=== PATIENT | female | born 1965 | race Caucasian/White ===

== ENCOUNTER 2016-06-25 07:26 | Emergency (ER) | payer SELFPAY ==
[~2016-06-25] VITALS: Ht 167.6 cm; Wt 80.0 kg
[~2016-06-25 07:26] MED LIST: ALBU.5I NEB; ALBU8I INH; NORC7.5T PO
[2016-06-25 07:29] VITALS: PULSE 95; RESP 24; TEMP 98.5; O2SAT 100
[2016-06-25 07:38] VITALS: RESP 20; O2SAT 98
[2016-06-25] MEDS: RESP: ALBUTEROL 2.5 MG/IPRATROPIUM 0.5 MG NEB (SCH) INH ×2 (07:41→07:42)
[2016-06-25 07:45] VITALS: O2SAT 98
[2016-06-25] MEDS ORDERED: DEXAMETHASONE SOD PHOS 4 MG/ML VIAL IV PUSH ONE (07:45)
[2016-06-25] MEDS ORDERED: DEXAMETHASONE SOD PHOS 4 MG/ML VIAL IM ONE (07:45)
[2016-06-25] MEDS ORDERED: SODIUM CHLORIDE 0.9% FLUSH 10 ML FLUSH IVF PRN (07:45)
--- NOTE | 2016-06-25 08:15 | RADRPT ---
EXAM DATE/TIME: 06/25/2016 07:49 [facility] COMPARISON: No previous studies available for comparison. INDICATIONS : Short of breath with wheezing, history of asthma. MEDICAL HISTORY : None. SURGICAL HISTORY : None. ENCOUNTER: Initial ACUITY: 1 day PAIN SCORE: 0/10 LOCATION: Bilateral chest FINDINGS: Portable AP view of the chest demonstrates a normal-sized cardiac silhouette. No effusion, consolidat ion, or pneumothorax is visualized. The bones and soft tissues demonstrate no acute abnormality. CONCLUSION: No acute cardiopulmonary abnormality is identified. Zacarias Vargas MD on June 25, 2016 at 8:13 Board Certified Radiologist. This report was verified electronically.
[2016-06-25 08:28] VITALS: BP 126/74; PULSE 99; RESP 18; O2SAT 95
[2016-06-25] MEDS ORDERED: AZIT250T3 PO (08:44)
[2016-06-25] MEDS ORDERED: ALBUAER3 INH (08:44)
--- NOTE | 2016-06-25 08:46 | PD ---
HPI Chief Complaint: Respiratory Distress Time Seen by Provider: 07:34 Travel History International Travel<30 days: No Contact w/Intl Traveler<30days: No Traveled to known affect area: No History of Present Illness HPI 50-year-old female arrives by EMS. She developed shortness of breath yesterday with wheezing. She reports she ran out of her Ventolin inhaler. She uses at least one Ventolin inhaler per month. EMS reports she was 99% on room air. She received 2 albuterol treatments en route and her respiratory rate improved and lung sounds became more clear. Patient reports smoking 1 pack of cigarettes per day. She has a history of asthma. She does not know if she has COPD. She has no nebulizer machine at home however reports she had one previously. She's had a cough. She's had no fever. She denies chest pain. PFSH Past Medical History Cancer: Yes (right breast cancer 2004) Cardiovascular Problems: Yes (HTN-STOPPED TAKING MEDS) COPD: Yes Diabetes: No Diminished Hearing: No Endocrine: No Gastrointestinal Disorders: No Genitourinary: No Hepatitis: No Hiatal Hernia: No Hypertension: Yes Immune Disorder: No Musculoskeletal: No Neurologic: No Psychiatric: No Respiratory: Yes (COPD, asthma, sleep apnea) Thyroid Disease: No ?: Not : 4 Para: 4 Miscarriage: 0 : 0 Tubal Ligation: Yes Past Surgical History Abdominal Surgery: No AICD: No Cardiac Surgery: No Ear Surgery: No Eye Surgery: No Genitourinary Surgery: No Gynecologic Surgery: Yes (tubal ligation) Joint Replacement: No Neurologic Surgery: No Oral Surgery: No Pacemaker: No Thoracic Surgery: Yes (right breast mastectomy) Other Surgery: Yes (BREAST LUMPECTOMY) Social History Alcohol Use: Yes (on occasion) Tobacco Use: Yes (1 ppd) Substance Use: No Allergies-Medications (Allergen,Severity, Reaction): Coded Allergies: Bees (Verified Allergy, Severe, anaphylaxis, 01/09/16) Reported Meds & Prescriptions Reported Meds & Active Scripts Active Ventolin Hfa 18 GM Inh (Albuterol Sulfate) 90 Mcg/Act Aer 2 Puff INH Q6H PRN Azithromycin 250 Mg Tab 250 Mg PO DIRECTED Take 2 tabs (500 mg) on day 1 then 1 tab daily x 4 days. Proair Hfa 8.5 GM Inh (Albuterol Sulfate) 90 Mcg/Act Aer 2 Puff INH Q6H PRN 108 mcg/actuation [place] 7.5-325 mg (Hydrocodone-Acetaminophen 7.5-325 mg) 1 Tab 1 Tab PO Q4H PRN Reported Proventil Conc Ud 0.5% (2.5 Mg/0.5 Ml) (Albuterol Sulfate) 2.5 Mg/0.5 Ml Inha 2.5 Mg NEB Q6HR NEB Ventolin Hfa (Albuterol Sulfate) 8 Gm Aero 2 Puff INH Q4 * SHAKE WELL BEFORE USE * Review of Systems Except as stated in HPI: all other systems reviewed are Neg Respiratory: Positive: Shortness of Breath, Wheezing Physical Exam Narrative GENERAL: 50 yo F, WNWD, mild respiratory distress SKIN: Warm and dry. HEAD: Atraumatic. Normocephalic. EYES: Pupils equal and round. No scleral icterus. No injection or drainage. ENT: No nasal bleeding or discharge. Mucous membranes pink and moist. NECK: Trachea midline. No JVD. CARDIOVASCULAR: Regular rate and rhythm. RESPIRATORY: Wheezing, Mild dyspnea. Mild tachypnea. GASTROINTESTINAL: Abdomen soft, non-tender, nondistended. Hepatic and splenic margins not palpable. MUSCULOSKELETAL: Extremities without clubbing, cyanosis, or edema. No obvious deformities. NEUROLOGICAL: Awake and alert. No obvious cranial nerve deficits. Motor grossly within normal limits. Five out of 5 muscle strength in the arms and legs. Normal speech. PSYCHIATRIC: Appropriate mood and affect; insight and judgment normal. Data Data Last Documented VS Vital Signs Date Time Temp Pulse Resp B/P Pulse Ox O2 Delivery O2 Flow Rate FiO2 06/25/16 08:28 99 18 126/74 95 Room Air 06/25/16 07:45 2.00 06/25/16 07:29 98.5 VS reviewed Orders Iv Access Insert/Monitor (06/25/16 07:34) Ecg Monitoring (06/25/16 07:34) Oximetry (06/25/16 07:34) Oxygen Administration (06/25/16 07:34) Chest, Single Ap (06/25/16 07:34) Sodium Chloride 0.9% Flush (Ns Flush) (06/25/16 07:45) Albuterol-Ipratropium Neb (Duoneb Neb) (06/25/16 07:45) Dexamethasone Inj (Decadron Inj) (06/25/16 07:45) Dexamethasone Inj (Decadron Inj) (06/25/16 07:45) Albuterol Hfa Inh (Ventolin Hfa Inh) (06/25/16 12:00) MDM Medical Decision Making Medical Screen Exam Complete: Yes Emergency Medical Condition: Yes Medical Record Reviewed: Yes Differential Diagnosis asthma exacerbation, COPD, pneumonia, medication refill Narrative Course She states presentation is essentially compatible with a typical asthma exacerbation. She continues that it is likely due to the fact that she is relatively new in the area and has no outside follow-up and is unable to take her medications for chronic essentially constant asthma symptoms. She also notes that abx are typically helpful for her recovery. The patient received Decadron with 3 rounds of DuoNeb. Her chest x-ray is reassuring. She'll be discharged home with prescription as below. Referral for patient assistance provided. Diagnosis Primary Impression: Wheezing Additional Impression: Asthma Qualified Code: J45.41 - Moderate persistent asthma with acute exacerbation Referrals: Patient Assistance Program 2 days Additional Instructions: You have a choice when it comes to health care, and we are glad that you chose [facility]. Hopefully, we have met your expectations on today's visit. You are welcome to return to [facility] at any time, as we are committed to meeting the health care needs of our community. Med/Other Pt SpecificInfo: Prescription(s) given Scripts Albuterol 18 GM Inh (Ventolin Hfa 18 GM Inh)90 Mcg/Act Aer2 Puff INH Q6H PRN ( SHORTNESS OF BREATH) #1 INHALER Ref 1 Prov:Rogelio Quinonez MD 06/25/16 Azithromycin 250 Mg [id number] Mg PO DIRECTED #6 TAB Ref 0 Take 2 tabs (500 mg) on day 1 then 1 tab daily x 4 days. Prov:Rogelio Quinonez MD 06/25/16 Albuterol 8.5 GM Inh (Proair Hfa 8.5 GM Inh)90 Mcg/Act Aer2 Puff INH Q6H PRN ( SHORTNESS OF BREATH) #1 INHALER Ref 1 108 mcg/actuation Prov:Rogelio Quinonez MD 06/25/16 Disposition: 01 DISCHARGE HOME Condition: Stable Rogelio Quinonez MD Jun 25, 2016 08:46
[2016-06-25] MEDS ORDERED: VENTAER INH (08:54)
[2016-06-25] MEDS ORDERED: ALBUTEROL SULFATE 90 MCG/ACT HFA 8 GM INHALER INH SCH (12:00)
[2016-06-25] MEDS ORDERED: ALBUTEROL SULFATE 90 MCG/ACT HFA 18 GM INHALER INH SCH (12:00)
== END 2016-06-25 10:02 | disposition home or self-care (01) ==
LOC: NEPE 07:26
DX: J45.901 Unspecified asthma with (acute) exacerbation (principal); F17.210 Nicotine dependence, cigarettes, uncomplicated; I10 Essential (primary) hypertension
CPT/HCPCS: 71010; 94640; 94664; 96374; 99283; J1100

== ENCOUNTER 2016-08-07 13:54 | Emergency (ER) | payer SELFPAY ==
[~2016-08-07] VITALS: Ht 167.6 cm; Wt 80.0 kg
[~2016-08-07 13:54] MED LIST changes: +ALBUAER3 INH; +AZIT250T3 PO; +VENTAER INH
[2016-08-07 13:56] VITALS: BP 180/82; PULSE 89; RESP 16; TEMP 98.3; O2SAT 96
[2016-08-07] MEDS ORDERED: predniSONE 20 MG TAB PO ONE (14:30)
[2016-08-07] MEDS ORDERED: RESP: ALBUTEROL 2.5 MG/IPRATROPIUM 0.5 MG NEB (SCH) INH ONE (14:30)
--- NOTE | 2016-08-07 14:33 | PD ---
HPI Chief Complaint: Medication Refill Request Time Seen by Provider: 14:05 Travel History International Travel<30 days: No Contact w/Intl Traveler<30days: No Traveled to known affect area: No History of Present Illness HPI 50-year-old female with past medical history of asthma presents to the ER with chief complaint of wheezing after running out of her Ventolin inhaler. She reports wheezing and mild shortness of breath for the last 3 days. She reports that she is mildly short of breath chronically. She reports multiple episodes of asthma exacerbation over the last year after moving here from [place] and losing her insurance. She reports these episodes are typically relieved with oral steroids and breathing treatments. Patient denies chest pain, significant shortness of breath, dizziness, abdominal pain, nausea, vomiting. Patient is a one pack per day smoker. PFSH Past Medical History Narrative Medical Significant past medical history include asthma,hypertension. Cardiovascular Problems: Yes (HTN-STOPPED TAKING MEDS) Diabetes: No Diminished Hearing: No Endocrine: No Gastrointestinal Disorders: No Genitourinary: No Hepatitis: No Hiatal Hernia: No Hypertension: Yes Immune Disorder: No Musculoskeletal: No Neurologic: No Psychiatric: No Respiratory: Yes (COPD) Thyroid Disease: No ?: Not LMP: 2009 : 4 Para: 4 Miscarriage: 0 : 0 Tubal Ligation: Yes Past Surgical History Gynecologic Surgery: Yes (tubal ligation) Other Surgery: Yes (BREAST LUMPECTOMY) Social History Alcohol Use: Yes (on occasion) Tobacco Use: Yes (1 ppd) Substance Use: No Allergies-Medications (Allergen,Severity, Reaction): Coded Allergies: Bees (Verified Allergy, Severe, anaphylaxis, 08/07/16) Reported Meds & Prescriptions Reported Meds & Active Scripts Active Ventolin Hfa 18 GM Inh (Albuterol Sulfate) 90 Mcg/Act Aer 2 Puff INH Q4-6H PRN Prednisone 20 Mg Tab 40 Mg PO DAILY Take 40 mg (2 tablets) daily for 5 days Ventolin Hfa 18 GM Inh (Albuterol Sulfate) 90 Mcg/Act Aer 2 Puff INH Q6H PRN Physical Exam Narrative GENERAL: Well-appearing, well-nourished female. In no acute distress SKIN: Focused skin assessment warm/dry. HEAD: Atraumatic. Normocephalic. EYES: Pupils equal and round. No scleral icterus. No injection or drainage. ENT: No nasal bleeding or discharge. Mucous membranes pink and moist. NECK: Trachea midline. No JVD. CARDIOVASCULAR: Regular rate and rhythm. No murmur appreciated. RESPIRATORY: No respiratory distress. Speaking in full sentences. No accessory muscle use. Breath sounds equal bilaterally. Expiratory wheezes bilaterally. Good air movement. GASTROINTESTINAL: Abdomen soft, non-tender, nondistended. Hepatic and splenic margins not palpable. MUSCULOSKELETAL: No obvious deformities. No clubbing. No cyanosis. No edema. NEUROLOGICAL: Awake and alert. No obvious cranial nerve deficits. Motor grossly within normal limits. Normal speech. PSYCHIATRIC: Appropriate mood and affect; insight and judgment normal. Data Data Last Documented VS Vital Signs Date Time Temp Pulse Resp B/P Pulse Ox O2 Delivery O2 Flow Rate FiO2 08/07/16 13:56 98.3 89 16 180/82 96 Orders Albuterol-Ipratropium Neb (Duoneb Neb) (08/07/16 14:30) Prednisone (Deltasone) (08/07/16 14:30) MDM Medical Decision Making Medical Screen Exam Complete: Yes Emergency Medical Condition: Yes Medical Record Reviewed: Yes Differential Diagnosis Asthma exacerbation, bronchitis, COPD Narrative Course 50-year-old female with history of asthma presents to the emergency department with chief complaint of wheezing and mild shortness of breath for the last 3 days after running out of her Ventolin inhaler. She is well-appearing in no respiratory distress. She does however have expiratory wheezes on exam. Patient is currently without insurance and therefore unable to get a prescription for the Ventolin. Patient will be given oral steroids and breathing treatment in the ED and reassess. Patient reassessed after breathing treatment and steroids. Wheezing has greatly resolved although expiratory wheezes present. She reports symptom improvement and requesting discharge. Patient is requesting Ventolin inhaler at discharge because she is unable to afford to purchase one without insurance. Patient reports she is eligible for [place] Medicaid starting in September 2016. Given the patient's history of frequent emergency room visits for asthma exacerbation the patient will be given albuterol inhaler here in ER to go. Diagnosis Primary Impression: Asthma Qualified Code: J45.20 - Mild intermittent asthma without complication Referrals: Primary Care Physician Patient Instructions: Asthma (ED), General Instructions Scripts Albuterol 18 GM Inh (Ventolin Hfa 18 GM Inh)90 Mcg/Act Aer2 Puff INH Q4-6H PRN ( SHORTNESS OF BREATH) #1 INHALER Ref 0 Prov:Jena Pettit 08/07/16 Prednisone 20 Mg Tab40 Mg PO DAILY #10 TAB Take 40 mg (2 tablets) daily for 5 days Prov:Jena Pettit 08/07/16 Disposition: 01 DISCHARGE HOME Condition: Jena Ortiz August 07, 2016 14:33
[2016-08-07] MEDS ORDERED: VENTAER INH (14:38)
[2016-08-07] MEDS ORDERED: PRED20 PO (14:38)
[2016-08-07 15:42] VITALS: PULSE 84; RESP 20; O2SAT 98
[2016-08-07] MEDS ORDERED: ALBUTEROL SULFATE 90 MCG/ACT HFA 8 GM INHALER INH SCH (16:00)
[2016-08-07] MEDS ORDERED: ALBUTEROL SULFATE 90 MCG/ACT HFA 18 GM INHALER INH SCH (16:00)
== END 2016-08-07 16:14 | disposition home or self-care (01) ==
LOC: NEPK 13:54
DX: J45.20 Mild intermittent asthma, uncomplicated (principal); Z76.0 Encounter for issue of repeat prescription; I10 Essential (primary) hypertension; J44.9 Chronic obstructive pulmonary disease, unspecified; F17.210 Nicotine dependence, cigarettes, uncomplicated
CPT/HCPCS: 94664; 99284; J7512

== ENCOUNTER 2016-11-23 15:50 | Emergency (ER) | payer BC ==
[~2016-11-23] VITALS: Ht 167.6 cm; Wt 85.0 kg
[~2016-11-23 15:50] MED LIST changes: -ALBU.5I NEB; -ALBU8I INH; -ALBUAER3 INH; -AZIT250T3 PO; -NORC7.5T PO; +PRED20 PO
[2016-11-23 15:52] VITALS: BP 139/93; PULSE 114; RESP 18; TEMP 98.1; O2SAT 100
[2016-11-23] MEDS ORDERED: RESP: BUDESONIDE 0.5 MG/2 ML NEB NEB ONE (16:30)
[2016-11-23] MEDS ORDERED: methylPREDNISolone SOD SUCC 125 MG/2 ML VIAL IM ONE (16:30)
[2016-11-23] MEDS: RESP: ALBUTEROL 2.5 MG/IPRATROPIUM 0.5 MG NEB (SCH) INH ×3 (16:30→17:00)
--- NOTE | 2016-11-23 16:30 | PD ---
HPI Chief Complaint: Medication Refill Request Time Seen by Provider: 16:23 Travel History International Travel<30 days: No Contact w/Intl Traveler<30days: No Traveled to known affect area: No History of Present Illness HPI Patient is a 51-year-old female presenting to emergency department for medication refill. Patient reports a history of COPD and is out of her Ventolin inhaler. She is supposed to be on an inhaled steroid but cannot afford this. She denies any shortness of breath, she does report a chronic occasionally productive cough. She denies any fever, chills, nausea, vomiting, headache. PFSH Past Medical History COPD: Yes Diabetes: No Diminished Hearing: No Endocrine: No Gastrointestinal Disorders: No Genitourinary: No Hepatitis: No Hiatal Hernia: No Hypertension: Yes Immune Disorder: No Musculoskeletal: No Neurologic: No Psychiatric: No Thyroid Disease: No ?: Not LMP: 5 YEARS : 4 Para: 4 Miscarriage: 0 : 0 Tubal Ligation: Yes Past Surgical History Gynecologic Surgery: Yes (tubal ligation) Other Surgery: Yes (BREAST LUMPECTOMY) Social History Alcohol Use: Yes (on occasion) Tobacco Use: Yes (1 ppd) Substance Use: No Allergies-Medications (Allergen,Severity, Reaction): Coded Allergies: bee venom protein (honey bee) (Unverified Allergy, Severe, anaphylaxis, ) Reported Meds & Prescriptions Reported Meds & Active Scripts Active Nebulizer 1 Mis Mis Ea .ROUTE DIRECTED Albuterol Neb (Albuterol Sulfate) 0.63 Mg/3 Ml Neb 0.63 Mg NEB QID NEB PRN Prednisone 50 Mg Tab 50 Mg PO DAILY 5 Days Azithromycin 250 Mg Tab 250 Mg PO DIRECTED Take 2 tabs (500 mg) on day 1 then 1 tab daily x 4 days. Ventolin Hfa 18 GM Inh (Albuterol Sulfate) 90 Mcg/Act Aer 2 Puff INH Q4-6H PRN Ventolin Hfa 18 GM Inh (Albuterol Sulfate) 90 Mcg/Act Aer 2 Puff INH Q4-6H PRN Prednisone 20 Mg Tab 40 Mg PO DAILY Take 40 mg (2 tablets) daily for 5 days Ventolin Hfa 18 GM Inh (Albuterol Sulfate) 90 Mcg/Act Aer 2 Puff INH Q6H PRN Review of Systems Except as stated in HPI: all other systems reviewed are Neg Respiratory: Positive: Cough, Wheezing, No: Shortness of Breath Physical Exam Narrative GENERAL: Overweight, well-developed, alert female. Resting comfortably in no acute distress. SKIN: Warm and dry. HEAD: Atraumatic. Normocephalic. EYES: Pupils equal and round. No scleral icterus. No injection or drainage. ENT: No nasal bleeding or discharge. Mucous membranes pink and moist. NECK: Trachea midline. No JVD. CARDIOVASCULAR: Regular rate and rhythm. RESPIRATORY: No accessory muscle use. Scattered expiratory wheezing noted bilaterally. GASTROINTESTINAL: Abdomen soft, non-tender, nondistended. Hepatic and splenic margins not palpable. MUSCULOSKELETAL: Extremities without clubbing, cyanosis, or edema. No obvious deformities. NEUROLOGICAL: Awake and alert. No obvious cranial nerve deficits. Motor grossly within normal limits. Five out of 5 muscle strength in the arms and legs. Normal speech. PSYCHIATRIC: Appropriate mood and affect; insight and judgment normal. Data Data Last Documented VS Vital Signs Date Time Temp Pulse Resp B/P (MAP) Pulse Ox O2 Delivery O2 Flow Rate FiO2 11/23/16 15:52 98.1 114 18 139/93 (108) 100 Orders Orders Methylprednisolone So Succ Inj (Solumedr (11/23/16 16:30) Albuterol-Ipratropium Neb (Duoneb Neb) (11/23/16 16:30) Budesonide Neb (Pulmicort Respule Neb) (11/23/16 16:30) MDM Medical Decision Making Medical Screen Exam Complete: Yes Emergency Medical Condition: Yes Interpretation(s) Vital Signs Date Time Temp Pulse Resp B/P (MAP) Pulse Ox O2 Delivery O2 Flow Rate FiO2 11/23/16 15:52 98.1 114 18 139/93 (108) 100 Differential Diagnosis COPD exacerbation versus bronchitis versus pneumonia versus medication refill versus other Narrative Course Patient is a 51-year-old female presenting for medication refill. On exam she was noted to have audible wheezing, she is mildly tachycardic. Patient will be given nebulizer treatments and a dose of Solu-Medrol now. Patient did not receive medications, she declined stating that her ride was here. She was given refills of her current medications as well as a prescription for nebulizer machine and albuterol nebulizer treatments. HR reassessed prior to discharge at 95. She was encouraged to follow-up with her primary doctor or the is only clinic. She was further advised to avoid tobacco use to avoid exacerbation of symptoms. She verbalized understanding of instructions. Patient is stable for discharge. Diagnosis Primary Impression: COPD (chronic obstructive pulmonary disease) Qualified Codes: J44.9 - Chronic obstructive pulmonary disease, unspecified Referrals: [facility] Primary Care Physician Patient Instructions: COPD (Chronic Obstructive Pulmonary Disease) (ED), General Instructions, Nutrition Guidelines for People with COPD (ED) Additional Instructions: Follow-up with her primary doctor or at the [facility] Take medications as directed Return to emergency department for any new or worsening symptoms Med/Other Pt SpecificInfo: Prescription(s) given Scripts Nebulizer (Nebulizer) 1 Mis Mis EA .ROUTE DIRECTED for Breathing Treatment, #1 0 Refills Prov: Lorna Swenson 11/23/16 Albuterol Neb (Albuterol Neb) 0.63 Mg/3 Ml Neb 0.63 MG NEB QID NEB Y for SHORTNESS OF BREATH, #125 NEBULE 0 Refills Prov: Lorna Swenson 11/23/16 Prednisone (Prednisone) 50 Mg Tab 50 MG PO DAILY for 5 Days, TAB 0 Refills Prov: Lorna Swenson 11/23/16 Azithromycin (Azithromycin) 250 Mg Tab 250 MG PO DIRECTED for Infection, #6 TAB 0 Refills Take 2 tabs (500 mg) on day 1 then 1 tab daily x 4 days. Prov: Lorna Swenson 11/23/16 Albuterol 18 GM Inh (Ventolin Hfa 18 GM Inh) 90 Mcg/Act Aer 2 PUFF INH Q4-6H Y for SHORTNESS OF BREATH, #1 INHALER 0 Refills Prov: Lorna Swenson 11/23/16 Disposition: 01 DISCHARGE HOME Condition: Stable Lorna Swenson Nov 23, 2016 16:30
[2016-11-23] MEDS ORDERED: VENTAER INH (17:03)
[2016-11-23] MEDS ORDERED: NEBULIZER1 MI1 (17:03)
[2016-11-23] MEDS ORDERED: ALBU0.63 NEB (17:03)
[2016-11-23] MEDS ORDERED: AZIT250T3 PO (17:03)
[2016-11-23] MEDS ORDERED: PRED50 PO (17:03)
== END 2016-11-23 17:27 | disposition home or self-care (01) ==
LOC: NEPD 15:50
DX: J44.9 Chronic obstructive pulmonary disease, unspecified (principal); F17.200 Nicotine dependence, unspecified, uncomplicated
CPT/HCPCS: 96372; 99284; J2930

== ENCOUNTER 2016-12-17 13:15 | Emergency (ER) | payer BC ==
[~2016-12-17 13:15] MED LIST changes: +ALBU0.63 NEB; +AZIT250T3 PO; +NEBULIZER1 MI1; +PRED50 PO
[2016-12-17 13:18] VITALS: BP 187/98; PULSE 113; RESP 15; TEMP 99.6; O2SAT 96
--- NOTE | 2016-12-17 13:24 | PD ---
Physical Exam Time Seen by Provider: 13:23 Narrative 51 year old female presents for evaluation of right wrist pain. Pt is right handed, has had 3 surgeries on the wrist. Slipped and fell 3 days ago and braced fall with RUE. Pain has been worsening x 3 days. Denies any other injury. Data Data Last Documented VS Vital Signs Date Time Temp Pulse Resp B/P (MAP) Pulse Ox O2 Delivery O2 Flow Rate FiO2 12/17/16 15:29 12/17/16 13:18 99.6 113 15 96 Orders Orders Wrist, Complete ([id number]) (12/17/16 ) [facility] Medical Record Reviewed: Yes Supervised Visit with ROSALIA: No Scripts Naproxen (Naproxen) 500 Mg Tab 500 MG PO BID for 7 Days, #14 TAB 0 Refills Prov: Franklyn Brar MD 12/17/16 Albuterol 18 GM Inh (Ventolin Hfa 18 GM Inh) 90 Mcg/Act Aer 2 PUFF INH Q4-6H Y for SHORTNESS OF BREATH, #1 INHALER 0 Refills Prov: Franklyn Brar MD 12/17/16 Condition: Stable Ange France Dec 17, 2016 13:24
--- NOTE | 2016-12-17 14:23 | RADRPT ---
EXAM DATE/TIME: 12/17/2016 14:06 [facility] COMPARISON: No previous studies available for comparison. INDICATIONS : Right wrist pain, fell on it the other day. MEDICAL HISTORY : right wrist fracture 2017 SURGICAL HISTORY : 3 surgeries on right wrist, last one 2017 ENCOUNTER: Initial ACUITY: 2 days PAIN SCORE: 7/10 LOCATION: Right wrist FINDINGS: There has been previous plate and screw fixation of the distal radius. There is slight radial shorten ing relative to the distal ulna. There are some small ulnar styloid fragments which are chronic. The carpals appear intact. CONCLUSION: No acute bony injury Zacarias Calvillo MD on December 17, 2016 at 14:19 Board Certified Radiologist. This report was verified electronically.
[2016-12-17] MEDS ORDERED: VENTAER INH (14:54)
[2016-12-17] MEDS ORDERED: NAPR500T PO (14:57)
--- NOTE | 2016-12-17 15:02 | PD ---
HPI Chief Complaint: Musculoskeletal Complaint Time Seen by Provider: 14:54 Travel History International Travel<30 days: No Contact w/Intl Traveler<30days: No Traveled to known affect area: No History of Present Illness HPI [id number] female presents for evaluation of right wrist pain. 3 days ago she tripped and the top and fell on her outstretched right hand. She reports that her right wrist bent awkwardly. She has had pain in the right wrist since then. The pain is an aching pain which is constant and worse with movement. Denies any numbness or tingling. She reports chronic limitation of her right wrist range of motion secondary to previous fractures and surgeries to the right wrist. She denies any other injuries. She is requesting a refill of her inhaler for her COPD. [facility] Past Medical History COPD: Yes Diabetes: No Diminished Hearing: No Endocrine: No Gastrointestinal Disorders: No Genitourinary: No Hepatitis: No Hiatal Hernia: No Hypertension: Yes Immune Disorder: No Musculoskeletal: No Neurologic: No Psychiatric: No Thyroid Disease: No : 4 Para: 4 Miscarriage: 0 : 0 Tubal Ligation: Yes Past Surgical History Gynecologic Surgery: Yes (tubal ligation) Other Surgery: Yes (BREAST LUMPECTOMY) Social History Alcohol Use: Yes (on occasion) Tobacco Use: Yes (1 ppd) Substance Use: No Allergies-Medications (Allergen,Severity, Reaction): Coded Allergies: bee venom protein (honey bee) (Unverified Allergy, Severe, anaphylaxis, ) Reported Meds & Prescriptions Reported Meds & Active Scripts Active Naproxen 500 Mg Tab 500 Mg PO BID 7 Days Ventolin Hfa 18 GM Inh (Albuterol Sulfate) 90 Mcg/Act Aer 2 Puff INH Q4-6H PRN Nebulizer 1 Mis Mis Ea .ROUTE DIRECTED Albuterol Neb (Albuterol Sulfate) 0.63 Mg/3 Ml Neb 0.63 Mg NEB QID NEB PRN Prednisone 50 Mg Tab 50 Mg PO DAILY 5 Days Azithromycin 250 Mg Tab 250 Mg PO DIRECTED Take 2 tabs (500 mg) on day 1 then 1 tab daily x 4 days. Ventolin Hfa 18 GM Inh (Albuterol Sulfate) 90 Mcg/Act Aer 2 Puff INH Q4-6H PRN Prednisone 20 Mg Tab 40 Mg PO DAILY Take 40 mg (2 tablets) daily for 5 days Ventolin Hfa 18 GM Inh (Albuterol Sulfate) 90 Mcg/Act Aer 2 Puff INH Q6H PRN Review of Systems General / Constitutional: No: Fever, Chills Musculoskeletal: Positive: Limited ROM, Pain Skin: Positive Other (denies open wounds) Physical Exam Narrative GENERAL: Well-developed well-nourished female who is noted to be tachycardic in triage and upon reassessment her pulse is 85. SKIN: Warm and dry. HEAD: Atraumatic. Normocephalic. EYES: Pupils equal and round. No scleral icterus. No injection or drainage. ENT: No nasal bleeding or discharge. Mucous membranes pink and moist. NECK: Trachea midline. No JVD. CARDIOVASCULAR: Regular rate and rhythm. No murmur appreciated. RESPIRATORY: No accessory muscle use. Mild wheezing bilaterally. MUSCULOSKELETAL: Previous surgical scar noted to the right wrist. There is limited pronation, supination, flexion and extension of the right wrist which are chronic per the patient. There is no bruising or soft tissue swelling. There is generalized tenderness to palpation of the right wrist joint. Distal sensation and pulses are intact. NEUROLOGICAL: Awake and alert. No obvious cranial nerve deficits. Motor grossly within normal limits. Normal speech. Data Data Last Documented VS Vital Signs Date Time Temp Pulse Resp B/P (MAP) Pulse Ox O2 Delivery O2 Flow Rate FiO2 12/17/16 13:18 99.6 113 15 187/98 (127) 96 Orders Orders Wrist, Complete ([id number]) (12/17/16 ) [facility] Medical Decision Making Medical Screen Exam Complete: Yes Emergency Medical Condition: Yes Medical Record Reviewed: Yes Differential Diagnosis Wrist fracture, sprain, hardware fracture, dislocation Narrative Course 51-year-old female here with right wrist pain after fall that she was kept 3 days ago. X-ray imaging is negative for acute process. Examination is consistent with a sprain to the right wrist. She is stable for discharge with a prescription for naproxen for pain. She is also be given a refill of her Ventolin inhaler at her request. Diagnosis Primary Impression: Wrist sprain Qualified Codes: S63.501A - Unspecified sprain of right wrist, initial encounter Additional Instructions: Medication as needed- take with meals. Follow-up with primary care and return for any emergent medical conditions. Med/Other Pt SpecificInfo: Prescription(s) given Scripts Naproxen (Naproxen) 500 Mg Tab 500 MG PO BID for 7 Days, #14 TAB 0 Refills Prov: Franklyn Brar MD 12/17/16 Albuterol 18 GM Inh (Ventolin Hfa 18 GM Inh) 90 Mcg/Act Aer 2 PUFF INH Q4-6H Y for SHORTNESS OF BREATH, #1 INHALER 0 Refills Prov: Farnklyn Brar MD 12/17/16 Disposition: 01 DISCHARGE HOME Condition: Stable Steven Hendricks Dec 17, 2016 15:02
== END 2016-12-17 15:30 | disposition home or self-care (01) ==
LOC: NEPK 13:15
DX: S63.501A Unspecified sprain of right wrist, initial encounter (principal); J44.9 Chronic obstructive pulmonary disease, unspecified; I10 Essential (primary) hypertension; F17.200 Nicotine dependence, unspecified, uncomplicated; W01.0XXA Fall on same level from slipping, tripping and stumbling without subsequent striking against object, initial encounter; Z79.51 Long term (current) use of inhaled steroids; Z79.899 Other long term (current) drug therapy
CPT/HCPCS: 73110; 99283

== ENCOUNTER 2017-02-15 10:51 | Emergency (ER) | payer BC ==
[~2017-02-15] VITALS: Ht 172.7 cm; Wt 90.5 kg
[~2017-02-15 10:51] MED LIST changes: +NAPR500T2 PO
[2017-02-15 10:52] VITALS: BP 157/92; PULSE 126; RESP 20; TEMP 98.7; O2SAT 97
[2017-02-15] MEDS ORDERED: SODIUM CHLORIDE 0.9% FLUSH 10 ML FLUSH IVF PRN (11:15)
[2017-02-15] MEDS ORDERED: methylPREDNISolone SOD SUCC 125 MG/2 ML VIAL IV PUSH ONE (11:15)
[2017-02-15] MEDS: RESP: ALBUTEROL 2.5 MG/IPRATROPIUM 0.5 MG NEB (SCH) INH ×2 (11:27→13:42)
[2017-02-15 11:31] VITALS: O2SAT 99
--- NOTE | 2017-02-15 11:37 | RADRPT ---
EXAM DATE/TIME: 02/15/2017 11:17 [facility] COMPARISON: WRIST RIGHT COMPLETE ([id number]), December 17, 2016, 14:06. INDICATIONS : Shortness of breath and cough for 3 days. MEDICAL HISTORY : Chronic obstructive pulmonary disease. Hypertension SURGICAL HISTORY : None. ENCOUNTER: Initial ACUITY: 3 days PAIN SCORE: 0/10 LOCATION: Bilateral chest FINDINGS: The cardiac and mediastinal contours are within normal limits. There are mild chronic interstitial ch anges within the parenchyma. The visualized osseous structures are intact. CONCLUSION: 1. Mild chronic interstitial changes. No acute cardiopulmonary findings. Rogelio Wharton MD on February 15, 2017 at 11:34 Board Certified Radiologist. This report was verified electronically.
[2017-02-15 11:43] LABS: AUTOMATED NEUTROPHIL # 5.8 TH/MM3 (1.8-7.7); BASOPHIL % 0.4 % (0.0-2.0); EOSINOPHIL # 0.4 TH/MM3 (0-0.4); EOSINOPHIL % 4.7 % (0.0-4.0); HEMATOCRIT 42.1 % (35.0-46.0); HEMO FLAGS DIFF FINAL; LYMPH % 28.7 % (9.0-44.0); LYMPHOCYTE # 2.7 TH/MM3 (1.0-4.8); MEAN CELL VOLUME 90.5 FL (80.0-100.0); MEAN CORPUSCULAR HEMOGLOBIN 30.2 PG (27.0-34.0); MEAN CORPUSCULAR HGB CONC 33.3 % (32.0-36.0); MONO % 5.4 % (0.0-8.0); NEUT % 60.8 % (16.0-70.0); PLATELET COUNT 166 TH/MM3 (150-450); RED BLOOD COUNT 4.65 MIL/MM3 (4.00-5.30); RED CELL DISTRIBUTION WIDTH 14.3 % (11.6-17.2); WHITE BLOOD COUNT 9.5 TH/MM3 (4.0-11.0)
[2017-02-15 12:14] LABS: ALKALINE PHOSPHATASE 84 U/L (45-117); ALT (GPT) 24 U/L (10-53); TOTAL BILIRUBIN ADULT 0.4 MG/DL (0.2-1.0)
[2017-02-15 12:55] LABS: BLOOD UREA NITROGEN 8 MG/DL (7-18); GLOMERULAR FILTRATION RATE 67 ML/MIN (>89)
[2017-02-15 12:56] LABS: ANION GAP 8 MEQ/L (5-15); AST (GOT) 17 U/L (15-37); BICARBONATE 26.4 MEQ/L (21.0-32.0); CHLORIDE 107 MEQ/L (98-107); POTASSIUM 4.4 MEQ/L (3.5-5.1); SODIUM (NA) 141 MEQ/L (136-145)
[2017-02-15] MEDS ORDERED: RESP: ALBUTEROL 2.5 MG/3 ML NEB (SCH) NEB ONE (13:15)
[2017-02-15] MEDS ORDERED: ALBUAER3 INH (13:41)
[2017-02-15] MEDS ORDERED: ALBU0.08 NEB (13:41)
--- NOTE | 2017-02-15 13:41 | PD ---
HPI Chief Complaint: Respiratory Symptoms Time Seen by Provider: 11:02 Travel History International Travel<30 days: No Contact w/Intl Traveler<30days: No Traveled to known affect area: No History of Present Illness HPI Patient is a 51-year-old female history of COPD who comes in complaining of shortness of breath. She has had nasal congestion and cough for the past 3 days. She says she's been using her albuterol at home without much relief. She denies chest pain, but says she feels some tightness in her chest. She denies any leg pain or swelling. She says this is typical of her COPD. She denies fever or chills. She is still smoking. PFSH Past Medical History Cancer: Yes (right breast cancer 2004) Cardiovascular Problems: Yes (HTN-STOPPED TAKING MEDS) COPD: Yes Diabetes: No Diminished Hearing: No Endocrine: No Gastrointestinal Disorders: No Genitourinary: No Hepatitis: No Hiatal Hernia: No Hypertension: Yes Immune Disorder: No Musculoskeletal: No Neurologic: No Psychiatric: No Respiratory: Yes (COPD) Thyroid Disease: No Tetanus Vaccination: Unknown Influenza Vaccination: Yes ?: Not : 4 Para: 4 Miscarriage: 0 : 0 Tubal Ligation: Yes Past Surgical History Gynecologic Surgery: Yes (tubal ligation) Pacemaker: No Thoracic Surgery: Yes (right breast mastectomy) Other Surgery: Yes (BREAST LUMPECTOMY) Social History Alcohol Use: No Tobacco Use: Yes (1 ppd) Substance Use: No Allergies-Medications (Allergen,Severity, Reaction): Coded Allergies: bee venom protein (honey bee) (Unverified Allergy, Severe, anaphylaxis, ) Reported Meds & Prescriptions Reported Meds & Active Scripts Active Albuterol Neb (Albuterol Sulfate) 2.5 Mg/3 Ml Neb 2.5 Mg NEB Q4HR NEB PRN Proair Hfa 8.5 GM Inh (Albuterol Sulfate) 90 Mcg/Act Aer 2 Puff INH Q4-6H PRN 108 mcg/actuation Naproxen 500 Mg Tab 500 Mg PO BID 7 Days Ventolin Hfa 18 GM Inh (Albuterol Sulfate) 90 Mcg/Act Aer 2 Puff INH Q4-6H PRN Nebulizer 1 Mis Mis Ea .ROUTE DIRECTED Albuterol Neb (Albuterol Sulfate) 0.63 Mg/3 Ml Neb 0.63 Mg NEB QID NEB PRN Prednisone 50 Mg Tab 50 Mg PO DAILY 5 Days Azithromycin 250 Mg Tab 250 Mg PO DIRECTED Take 2 tabs (500 mg) on day 1 then 1 tab daily x 4 days. Ventolin Hfa 18 GM Inh (Albuterol Sulfate) 90 Mcg/Act Aer 2 Puff INH Q4-6H PRN Prednisone 20 Mg Tab 40 Mg PO DAILY Take 40 mg (2 tablets) daily for 5 days Ventolin Hfa 18 GM Inh (Albuterol Sulfate) 90 Mcg/Act Aer 2 Puff INH Q6H PRN Review of Systems Except as stated in HPI: all other systems reviewed are Neg General / Constitutional: No: Fever, Chills HENT: Positive: Congestion, No: Headaches, Lightheadedness Cardiovascular: No: Chest Pain or Discomfort Respiratory: Positive: Cough, Shortness of Breath Gastrointestinal: No: Nausea, Vomiting Musculoskeletal: No: Myalgias, Edema Skin: No Rash, No Change in Pigmentation Neurologic: No: Weakness, Dizziness Physical Exam Narrative GENERAL: Awake and alert, in no acute distress. SKIN: Focused skin assessment warm/dry. HEAD: Atraumatic. Normocephalic. EYES: Pupils equal and round. No scleral icterus. ENT: Mucous membranes pink and moist. NECK: Trachea midline. No JVD. CARDIOVASCULAR: Regular rate and rhythm. No murmur appreciated. RESPIRATORY: No accessory muscle use. She is wheezing throughout both lungs. Breath sounds equal bilaterally. GASTROINTESTINAL: Abdomen soft, non-tender, nondistended. MUSCULOSKELETAL: No obvious deformities. No clubbing. No cyanosis. No edema. NEUROLOGICAL: Awake and alert. No obvious cranial nerve deficits. Motor grossly within normal limits. Normal speech. PSYCHIATRIC: Appropriate mood and affect; insight and judgment normal. Data Data Last Documented VS Vital Signs Date Time Temp Pulse Resp B/P (MAP) Pulse Ox O2 Delivery O2 Flow Rate FiO2 02/15/17 11:31 18 97 Room Air 02/15/17 11:31 02/15/17 10:52 98.7 126 Orders Orders Complete Blood Count With Diff (02/15/17 11:06) Comprehensive Metabolic Panel (02/15/17 11:06) Iv Access Insert/Monitor (02/15/17 11:06) Ecg Monitoring (02/15/17 11:06) Oximetry (02/15/17 11:06) Oxygen Administration (02/15/17 11:06) Chest, Pa & Lat (02/15/17 11:06) Sodium Chloride 0.9% Flush (Ns Flush) (02/15/17 11:15) Methylprednisolone So Succ Inj (Solumedr (02/15/17 11:15) Albuterol-Ipratropium Neb (Duoneb Neb) (02/15/17 11:15) Albuterol Neb (Albuterol Neb) (02/15/17 13:15) Ed Discharge Order (02/15/17 13:41) Labs Laboratory Tests Test 02/15/17 11:15 02/15/17 12:25 White Blood Count 9.5 TH/MM3 Red Blood Count 4.65 MIL/MM3 Hemoglobin 14.0 GM/DL Hematocrit 42.1 % Mean Corpuscular Volume 90.5 FL Mean Corpuscular Hemoglobin 30.2 PG Mean Corpuscular Hemoglobin Concent 33.3 % Red Cell Distribution Width 14.3 % Platelet Count 166 TH/MM3 Mean Platelet Volume 9.6 FL Neutrophils (%) (Auto) 60.8 % Lymphocytes (%) (Auto) 28.7 % Monocytes (%) (Auto) 5.4 % Eosinophils (%) (Auto) 4.7 % Basophils (%) (Auto) 0.4 % Neutrophils # (Auto) 5.8 TH/MM3 Lymphocytes # (Auto) 2.7 TH/MM3 Monocytes # (Auto) 0.5 TH/MM3 Eosinophils # (Auto) 0.4 TH/MM3 Basophils # (Auto) 0.0 TH/MM3 CBC Comment DIFF FINAL Differential Comment Blood Urea Nitrogen 8 MG/DL Creatinine 0.89 MG/DL Random Glucose 109 MG/DL Total Protein 7.8 GM/DL Albumin 3.7 GM/DL Calcium Level 9.1 MG/DL Alkaline Phosphatase 84 U/L Aspartate Amino Transf (AST/SGOT) 17 U/L Alanine Aminotransferase (ALT/SGPT) 24 U/L Total Bilirubin 0.4 MG/DL Sodium Level 141 MEQ/L Potassium Level 4.4 MEQ/L Chloride Level 107 MEQ/L Carbon Dioxide Level 26.4 MEQ/L Anion Gap 8 MEQ/L Estimat Glomerular Filtration Rate 67 ML/MIN MDM Medical Decision Making Medical Screen Exam Complete: Yes Emergency Medical Condition: Yes Medical Record Reviewed: Yes Differential Diagnosis COPD exacerbation versus pneumonia versus URI Narrative Course Patient is a 51-year-old female comes in complaining of shortness of breath with cough and cold. Exam shows diffuse wheezing Both lungs. IV established, labs sent. Patient given 3 duo nebs and a dose of Solu-Medrol. X-ray performed shows no acute abnormalities. Labs show no acute abnormalities. Patient still has some wheezing, but reports feeling better. She is offered another albuterol treatment, however she says she would like to go because she is hungry. Given prescriptions for her albuterol as well as prednisone. Advised follow-up with a primary care doctor. Strongly advised to quit smoking. Advised to return to the ED as needed for any worsening symptoms. Diagnosis Primary Impression: COPD (chronic obstructive pulmonary disease) Qualified Codes: J44.1 - Chronic obstructive pulmonary disease with (acute) exacerbation Patient Instructions: COPD (Chronic Obstructive Pulmonary Disease) (ED), General Instructions Additional Instructions: He needs to quit smoking. Follow-up with the [facility]. Take the prednisone starting tomorrow as you had steroids today already. He is albuterol as needed. Return to the ED as needed for any worsening symptoms. Scripts Albuterol 18 GM Inh (Ventolin Hfa 18 GM Inh) 90 Mcg/Act Aer 2 PUFF INH Q4-6H Y for SHORTNESS OF BREATH, #1 INHALER 0 Refills Prov: Anna Enrique MD 02/15/17 Albuterol Neb (Albuterol Neb) 2.5 Mg/3 Ml Neb 2.5 MG NEB Q4HR NEB Y for SHORTNESS OF BREATH, #60 NEBULE 0 Refills Prov: Anna Enrique MD 02/15/17 Disposition: 01 DISCHARGE HOME Condition: Stable Anna Enrique MD Feb 15, 2017 13:41
[2017-02-15] MEDS ORDERED: VENTAER INH (14:06)
== END 2017-02-15 14:16 | disposition home or self-care (01) ==
LOC: NEPD 10:51
DX: J44.9 Chronic obstructive pulmonary disease, unspecified (principal); I10 Essential (primary) hypertension; F17.200 Nicotine dependence, unspecified, uncomplicated; Z79.51 Long term (current) use of inhaled steroids; Z79.899 Other long term (current) drug therapy
CPT/HCPCS: 71020; 80053; 85025; 94640; 94664; 96374; 99285; J2930; J7613

== ENCOUNTER 2017-07-05 05:48 | Inpatient (IN) | payer BC ==
[2017-07-05] VITALS (28 sets, daily range): BP systolic 74–229; BP diastolic 50–156; PULSE 109–164; RESP 16–40; TEMP 97.4–99.2; O2SAT 91–100
[~2017-07-05] VITALS: Ht 165.1 cm; Wt 98.3 kg
[~2017-07-05 05:48] MED LIST changes: +ALBU0.08 NEB
[2017-07-05] MEDS ORDERED: LORazepam 2 MG/ML VIAL ONE (05:50)
[2017-07-05] MEDS ORDERED: AZITHROMYCIN INJ 500 MG in SODIUM CHLOR 0.9% 250 ML INJ 250 ML IV STA (05:53)
[2017-07-05] MEDS ORDERED: cefTRIAXone INJ 2,000 MG in SODIUM CHLORIDE 0.9% INJ 100 ML IV STA (05:53)
[2017-07-05] MEDS ORDERED: DILTIAZEM HCL 50 MG/10 ML VIAL ONE (05:59)
[2017-07-05] MEDS ORDERED: LORazepam 2 MG/ML VIAL IV PUSH ONE (06:00)
[2017-07-05] MEDS ORDERED: FUROSEMIDE 40 MG/4 ML VIAL IVP ONE (06:00)
[2017-07-05] MEDS ORDERED: SODIUM CHLORIDE 0.9% FLUSH 10 ML FLUSH IVF PRN ×2 (06:00→06:30)
[2017-07-05] MEDS ORDERED: PROPOFOL 500 MG/50 ML INJ 50 ML ONE (06:07)
[2017-07-05] MEDS ORDERED: ETOMIDATE 40 MG/20 ML VIAL ONE (06:07)
[2017-07-05] MEDS ORDERED: OLAN10TA PO (06:08)
[2017-07-05] MEDS ORDERED: CLON0.1T PO (06:11)
[2017-07-05] MEDS ORDERED: LISI10TA3 PO (06:11)
[2017-07-05] MEDS ORDERED: SERT-129 PO (06:11)
[2017-07-05] MEDS ORDERED: MELO7.5T27 PO (06:11)
[2017-07-05] MEDS ORDERED: TRAZ100T10 PO (06:11)
[2017-07-05] MEDS: PROPOFOL 1000 MG/100 ML INJ 100 ML IV PRN ×2 (06:27→10:27)
[2017-07-05] MEDS ORDERED: ETOMIDATE 20 MG/10 ML VIAL IVP ONE (06:30)
[2017-07-05] MEDS ORDERED: SUCCINYLCHOLINE CHLORIDE 200 MG/10 ML VIAL IV PUSH ONE (06:30)
--- NOTE | 2017-07-05 06:40 | PD ---
HPI Chief Complaint: Respiratory Distress Time Seen by Provider: 05:51 Travel History International Travel<30 days: No Contact w/Intl Traveler<30days: No Traveled to known affect area: No History of Present Illness HPI 51 y/o female presents with shortness of breath coming from home. The ambulance team found her with a heart rate in the 180s and she was significantly tachypneic and they placed her on CPAP. With CPAP her saturation was 94%. They gave her 6 of adenosine without change in heart rate. They also gave her Solu-Medrol and duo nebs in route. Patient nods her head yes to feeling short of breath but history is significantly limited from patient given clinical acuity. PFSH Past Medical History Cancer: Yes (right breast cancer 2004) Cardiovascular Problems: Yes COPD: Yes Diabetes: No Diminished Hearing: No Endocrine: No Gastrointestinal Disorders: No Genitourinary: No Hepatitis: No Hiatal Hernia: No Hypertension: Yes Immune Disorder: No Musculoskeletal: No Neurologic: No Psychiatric: No Respiratory: Yes (copd) Thyroid Disease: No Tetanus Vaccination: Unknown Influenza Vaccination: No ?: Not : 4 Para: 4 Miscarriage: 0 : 0 Tubal Ligation: Yes Past Surgical History Gynecologic Surgery: Yes (tubal ligation) Pacemaker: No Thoracic Surgery: Yes (right breast mastectomy) Other Surgery: Yes (BREAST LUMPECTOMY) Social History Alcohol Use: No Tobacco Use: Yes (1 ppd) Substance Use: No Allergies-Medications (Allergen,Severity, Reaction): Coded Allergies: bee venom protein (honey bee) (Unverified Allergy, Severe, anaphylaxis, ) Reported Meds & Prescriptions Reported Meds & Active Scripts Active Nebulizer 1 Mis Mis Ea .ROUTE DIRECTED Ventolin Hfa 18 GM Inh (Albuterol Sulfate) 90 Mcg/Act Aer 2 Puff INH Q4-6H PRN Reported Sertraline (Sertraline HCl) 100 Mg Tab 100 Mg PO DAILY Clonidine (Clonidine HCl) 0.1 Mg Tab 0.1 Mg PO BID Trazodone (Trazodone HCl) 100 Mg Tablet 100 Mg PO HS Olanzapine 10 Mg Tab 10 Mg PO DAILY Review of Systems ROS Limitations: Clinical Condition Except as stated in HPI: all other systems reviewed are Neg Physical Exam Exam Limitations: Clinical Condition Narrative GENERAL: 51-year-old female who appears clinically ill SKIN: Focused skin assessment diaphoretic HEAD: Atraumatic. Normocephalic. EYES: Pupils equal and round. No scleral icterus. No injection or drainage. ENT: No nasal bleeding or discharge. Mucous membranes pink and moist. NECK: Trachea midline. CARDIOVASCULAR: Tachycardic rate. RESPIRATORY: No accessory muscle use. Decreased breath sounds bilaterally. GASTROINTESTINAL: Abdomen soft, nondistended. MUSCULOSKELETAL: No obvious deformities. No clubbing. No cyanosis. NEUROLOGICAL: Eyes open, moves extremities Data Data Last Documented VS Orders Orders Lorazepam Inj (Ativan Inj) (07/05/17 05:50) Complete Blood Count With Diff (07/05/17 05:51) Comprehensive Metabolic Panel (07/05/17 05:51) B-Type Natriuretic Peptide (07/05/17 05:51) Act Partial Throm Time (Ptt) (07/05/17 05:51) Prothrombin Time / Inr (Pt) (07/05/17 05:51) Magnesium (Mg) (07/05/17 05:51) Ckmb (Isoenzyme) Profile (07/05/17 05:51) Troponin I (07/05/17 05:51) Influenzae A/B Antigen (07/05/17 05:51) Blood Culture (07/05/17 05:51) Iv Access Insert/Monitor (07/05/17 05:51) Electrocardiogram (07/05/17 05:51) Ecg Monitoring (07/05/17 05:51) Oximetry (07/05/17 05:51) Oxygen Administration (07/05/17 05:51) Chest, Single Ap (07/05/17 05:51) Sodium Chloride 0.9% Flush (Ns Flush) (07/05/17 06:00) Furosemide Inj (Lasix Inj) (07/05/17 06:00) Resp Bipap / Cpap Non Invas Vt (07/05/17 05:51) Lactic Acid (07/05/17 05:51) Lorazepam Inj (Ativan Inj) (07/05/17 06:00) Ceftriaxone Inj (Rocephin Inj) (07/05/17 05:53) Azithromycin Inj (Zithromax Inj) (07/05/17 05:53) Diltiazem Inj (Cardizem Inj) (07/05/17 05:59) Etomidate Inj (Amidate Inj) (07/05/17 06:07) Propofol 500 Mg/50 Ml Inj (Diprivan 500 (07/05/17 06:07) Arterial Blood Gas (Abg) (07/05/17 ) Ng Gastric Tube Insert/Monitor (07/05/17 06:19) Urinary Catheter Insert/Apply (07/05/17 06:19) Etomidate Inj (Amidate Inj) (07/05/17 06:30) Succinylcholine Inj (Quelicin Inj) (07/05/17 06:30) Sodium Chloride 0.9% Flush (Ns Flush) (07/05/17 06:30) Propofol 1000 Mg/100 Ml Inj (Diprivan 10 (07/05/17 06:30) Rocuronium Inj (Zemuron Inj) (07/05/17 06:45) Admit Order (Ed Use Only) (07/05/17 06:55) CKMB (07/05/17 06:20) CKMB% (07/05/17 06:20) Labs Laboratory Tests Test 07/05/17 06:20 07/05/17 06:30 White Blood Count 36.7 TH/MM3 Red Blood Count 4.77 MIL/MM3 Hemoglobin 14.1 GM/DL Hematocrit 44.5 % Mean Corpuscular Volume 93.2 FL Mean Corpuscular Hemoglobin 29.5 PG Mean Corpuscular Hemoglobin Concent 31.7 % Red Cell Distribution Width 14.7 % Platelet Count 353 TH/MM3 Mean Platelet Volume 10.2 FL Neutrophils (%) (Auto) 43.6 % Lymphocytes (%) (Auto) 49.0 % Monocytes (%) (Auto) 5.2 % Eosinophils (%) (Auto) 1.7 % Basophils (%) (Auto) 0.5 % Neutrophils # (Auto) 16.0 TH/MM3 Lymphocytes # (Auto) 18.0 TH/MM3 Monocytes # (Auto) 1.9 TH/MM3 Eosinophils # (Auto) 0.6 TH/MM3 Basophils # (Auto) 0.2 TH/MM3 CBC Comment AUTO DIFF Differential Total Cells Counted 100 Neutrophils % (Manual) 43 % Lymphocytes % 52 % Monocytes % 4 % Eosinophils % 1 % Neutrophils # (Manual) 15.8 TH/MM3 Differential Comment FINAL DIFF MANUAL Platelet Estimate NORMAL Platelet Morphology Comment NORMAL Prothrombin Time 9.4 SEC Prothromb Time International Ratio 0.9 RATIO Activated Partial Thromboplast Time 22.9 SEC Blood Urea Nitrogen 14 MG/DL Creatinine 1.37 MG/DL Random Glucose 274 MG/DL Total Protein 7.6 GM/DL Albumin 3.6 GM/DL Calcium Level 8.4 MG/DL Magnesium Level 2.0 MG/DL Alkaline Phosphatase 121 U/L Aspartate Amino Transf (AST/SGOT) 51 U/L Alanine Aminotransferase (ALT/SGPT) 36 U/L Total Bilirubin 0.2 MG/DL Sodium Level 143 MEQ/L Potassium Level 5.0 MEQ/L Chloride Level 115 MEQ/L Carbon Dioxide Level 18.3 MEQ/L Anion Gap 10 MEQ/L Estimat Glomerular Filtration Rate 41 ML/MIN Total Creatine Kinase 125 U/L Creatine Kinase MB 2.5 NG/ML Troponin I 0.09 NG/ML B-Type Natriuretic Peptide 368 PG/ML Lactic Acid Level 2.3 mmol/L MDM Medical Decision Making Medical Screen Exam Complete: Yes Emergency Medical Condition: Yes Medical Record Reviewed: Yes (Past history confirmed) Interpretation(s) EKG appears sinus tachycardia without STEMI criteria CBC & BMP Diagram 07/05/17 06:20 Total Protein 7.6, Albumin 3.6, Calcium Level 8.4 L, Magnesium Level 2.0, Alkaline Phosphatase 121 H, Aspartate Amino Transf (AST/SGOT) 51 H, Alanine Aminotransferase (ALT/SGPT) 36, Total Bilirubin 0.2 Last 24 hours Impressions Chest X-Ray 07/05/17 0551 Signed Impressions: Service Date/Time: Wednesday, July 05, 2017 06:43 - CONCLUSION: Diffuse bilateral pulmonary infiltrates. Henrik Valero Jr., MD Differential Diagnosis SVT, a flutter, COPD, CHF, renal failure, MO, pneumonia, sepsis Narrative Course Placed patient on BiPAP and patient was very anxious. Gave a half a milligram of Ativan but patient was still unable to tolerate so we will proceed with intubation. For heart rate in the 180s gave 10 of IV Cardizem which was able to slow her heart rate down some and appeared to be sinus tachycardia. Patient intubated and placed on propofol but having difficulty saturating with oxygen saturations so was given 50 of rocuronium. She will be admitted to the ICU and closely monitored. She is also given Rocephin and azithromycin for possible pneumonia coverage. She was given Lasix for initial chest x-ray and additional IV fluids were initially held with BNP pending. Boyfriend updated at bedside by staff. Critical Care Narrative Aggregate critical care time was 60 minutes. Time to perform other separately billable procedures was not included in the critical care time. My time did not include minutes spent treating any other patients simultaneously or on activities that did not directly contribute to the patient's treatment. The services I provided to this patient were to treat and/or prevent clinically significant deterioration that could result in: Respiratory failure, I provided critical care services requiring my management, as noted below: Chart data review, documentation time, medication orders and management, vital sign assessments/reviewing monitor data, ordering and reviewing lab tests, ordering and interpreting/reviewing x-rays and diagnostic studies, care of the patient and discussion of the patient with the admitting physicians. Procedures Procedure Narrative Emergently performed: INTUBATION: The patient was put in optimal position for the procedure. Rapid sequence intubation was initiated by me using 20 milligrams of etomidate IV and 100 milligrams of succinylcholine IV. The patient was intubated with a 8-0 cuffed endotracheal tube. Tube placement was confirmed by visualization of the tube and balloon passing through the cords, capnometry and subsequent chest x-ray. Breath sounds were equal and well aerated bilaterally postintubation. No breath sounds over stomach. Patient tolerated procedure well. Sepsis Criteria SIRS Criteria (2 or more): Heart rate over 90, WBC > 23407, < 4000 or > 10% bands Sepsis Criteria (SIRS+source): Infect source susp/known Severe Sepsis (+one): Lactate >2 Criteria Outcome: Meets severe sepsis criteria Physician Communication Physician Communication dr patterson agrees to admit, bnp and troponin pending Diagnosis Primary Impression: Acute respiratory failure Qualified Codes: J96.00 - Acute respiratory failure, unspecified whether with hypoxia or hypercapnia Additional Impressions: COPD exacerbation Acute respiratory acidosis Lactic acidemia Sepsis Qualified Codes: A41.9 - Sepsis, unspecified organism Acute kidney injury Admitting Information Admitting Physician Requests: Admit Scripts Levofloxacin (Levaquin) 750 Mg Tablet 750 MG PO EVERY OTHER DAY for Infection for 10 Days, TAB 0 Refills Prov: Theodora Holguin MD 07/06/17 Prednisone (Prednisone) 20 Mg Tab 60 MG PO DAILY for Asthma Management for 7 Days, #21 TAB 0 Refills Prov: Theodora Holguin MD 07/06/17 Oseltamivir (Tamiflu) 30 Mg Cap 30 MG PO BID for influenza for 4 Days, #8 CAP Prov: Theodora Holguin MD 07/06/17 Sintia Carpio MD Jul 05, 2017 06:40
[2017-07-05] MEDS ORDERED: ROCURONIUM INJ 50 MG/5 ML VIAL IV ONE (06:45)
--- NOTE | 2017-07-05 06:54 | RADRPT ---
EXAM DATE/TIME: 07/05/2017 06:43 [facility] COMPARISON: CHEST SINGLE AP, June 25, 2016, 7:49. INDICATIONS : Intubation- Shortness of breath. MEDICAL HISTORY : Chronic obstructive pulmonary disease. Hypertension SURGICAL HISTORY : None. ENCOUNTER: Initial ACUITY: 1 day PAIN SCORE: Non-responsive. LOCATION: Bilateral chest FINDINGS: A single portable frontal view of the chest shows diffuse bilateral pulmonary infiltrates most pronou nced within the right base. No effusions. Heart is normal in size. Tip of endotracheal tube 3 cm prox imal to mario. Nasogastric tube noted. CONCLUSION: Diffuse bilateral pulmonary infiltrates. Henrik Valero Jr., MD on July 05, 2017 at 6:53 Board Certified Radiologist. This report was verified electronically.
[2017-07-05 06:56] LABS: INTERNATIONAL NORMALIZED RATIO 0.9 RATIO; PROTHROMBIN TIME - PATIENT 9.4 SEC (9.8-11.6)
[2017-07-05 06:58] LABS: ALBUMIN 3.6 GM/DL (3.4-5.0); ALT (GPT) 36 U/L (10-53); AST (GOT) 51 U/L (15-37); BASOPHIL # 0.2 TH/MM3 (0-0.2); BASOPHIL % 0.5 % (0.0-2.0); BICARBONATE 18.3 MEQ/L (21.0-32.0); BLOOD UREA NITROGEN 14 MG/DL (7-18); CALCIUM 8.4 MG/DL (8.5-10.1); CHLORIDE 115 MEQ/L (98-107); CREATININE 1.37 MG/DL (0.50-1.00); EOSINOPHIL # 0.6 TH/MM3 (0-0.4); EOSINOPHIL % 1.7 % (0.0-4.0); GLOMERULAR FILTRATION RATE 41 ML/MIN (>89); GLUCOSE,RANDOM 274 MG/DL (74-106); HEMATOCRIT 44.5 % (35.0-46.0); HEMOGLOBIN 14.1 GM/DL (11.6-15.3); MEAN CELL VOLUME 93.2 FL (80.0-100.0); MEAN CORPUSCULAR HEMOGLOBIN 29.5 PG (27.0-34.0); MEAN CORPUSCULAR HGB CONC 31.7 % (32.0-36.0); MEAN PLATELET VOLUME 10.2 FL (7.0-11.0); MONO % 5.2 % (0.0-8.0); MONOCYTE # 1.9 TH/MM3 (0-0.9); NEUT % 43.6 % (16.0-70.0); PLATELET COUNT 353 TH/MM3 (150-450); RED BLOOD COUNT 4.77 MIL/MM3 (4.00-5.30); RED CELL DISTRIBUTION WIDTH 14.7 % (11.6-17.2); SODIUM (NA) 143 MEQ/L (136-145); WHITE BLOOD COUNT 36.7 TH/MM3 (4.0-11.0)
[2017-07-05 07:02] LABS: ALKALINE PHOSPHATASE 121 U/L (45-117); TOTAL BILIRUBIN ADULT 0.2 MG/DL (0.2-1.0); TOTAL PROTEIN 7.6 GM/DL (6.4-8.2); TROPONIN I 0.09 NG/ML (0.02-0.05)
[2017-07-05] MEDS ORDERED: VANCOMYCIN INJ 1,000 MG in SODIUM CHLOR 0.9% 250 ML INJ 250 ML IV ONE (07:30)
[2017-07-05 07:41] LABS: LYMPHOCYTES 52 % (9-44); MONOCYTES 4 % (0-8); NEUTROPHIL # MANUAL DIFF 15.8 TH/MM3 (1.8-7.7); POLYS (SEG NEUTROPHILS) 43 % (16-70)
[2017-07-05] MEDS ORDERED: MISCELLANEOUS NURSING INFORMATION XX SCH (08:00)
[2017-07-05] MEDS ORDERED: MAGNESIUM HYDROXIDE SUSP 30 ML CUP PO PRN (08:00)
[2017-07-05] MEDS ORDERED: CHLORHEXIDINE GLUCONATE 2 % 1 PACK (2 CLOTHS) TOP PRN (08:00)
[2017-07-05] MEDS ORDERED: FUROSEMIDE 40 MG/4 ML VIAL IV PUSH ONE (08:00)
[2017-07-05] MEDS ORDERED: Vancomycin Consult Pharmacy 1 EA OTHER SCH (08:00)
[2017-07-05] MEDS ORDERED: BISACODYL 10 MG SUPP RECTAL PRN (08:00)
[2017-07-05] MEDS ORDERED: LACTULOSE SYRUP 20 GM/30 ML CUP PO PRN (08:00)
[2017-07-05] MEDS ORDERED: SENNOSIDES 8.6 MG TAB PO PRN (08:00)
[2017-07-05] MEDS ORDERED: DEXTROSE 50% IN WATER 50 ML VIAL(D50) IV PUSH PRN (08:15)
[2017-07-05] MEDS ORDERED: GLUCAGON 1 MG/ML VIAL OTHER PRN (08:15)
[2017-07-05] MEDS ORDERED: fentaNYL DRIP 250 ML ONE (08:27)
[2017-07-05] MEDS: fentaNYL DRIP 250 ML IV PRN ×2 (08:36→20:05)
[2017-07-05] MEDS: PIPERACIL-TAZO 4.5 GM PREMIX 100 ML IV SCH ×3 (08:46→22:03)
--- NOTE | 2017-07-05 08:48 | MH ---
cc: Barbara Garcia MD DATE OF ADMISSION: 07/05/2017 HISTORY OF PRESENT ILLNESS: The patient is a 51-year-old female with past medical history of hypertension, COPD, obstructive sleep apnea on CPAP, who presented to [facility] ED via ambulance with tachypnea, tachycardia with heart rate in the 180s. She was initially placed on a CPAP. Her saturation was 94% and was given 6 mg of adenosine for a possible SVT without any changes. Also, she received Solu-Medrol and DuoNeb en route. Due to worsening respiratory status as she was subsequently intubated in the ER with etomidate, succinylcholine, and placed on full mechanical ventilation. Also, she was started on Diprivan infusion for sedation. ABG post-intubation showed acute hypercapnic and hypoxemic respiratory failure with a pH of 7.02, CO2 of 85, PaO2 of 129, bicarbonate 21, sats 95% on pressure control ventilation with 100% FIO2. Her laboratory data significant for leukocytosis with a WBC of 36.7, mild acute kidney injury with creatinine level of 1.37. Also, her lactic acid was measured at 2.3 and BNP of 368. Chest x-ray post-intubation showed diffuse bilateral pulmonary infiltrates. Due to her tachycardia, she was given Cardizem which slowed down her heart rate and appeared to be in sinus tachycardia. In the ER, she also received Rocephin, azithromycin, Ativan and Lasix. PAST MEDICAL HISTORY: Significant for COPD, hypertension, history of right breast cancer in 2004, sleep apnea. PAST SURGICAL HISTORY: Previous tubal ligation, previous right breast mastectomy, lumpectomy. SOCIAL HISTORY: Active smoker per records, nondrinker. ALLERGIES: BEE VENOM PROTEIN. REPORTED MEDICATIONS: Sertraline, clonidine, lisinopril, trazodone, olanzapine. FAMILY HISTORY: Noncontributing to present illness. REVIEW OF SYSTEMS: As per HPI. Rest of review of systems unobtainable as the patient is intubated. PHYSICAL EXAMINATION: GENERAL: A 51-year-old female, intubated for respiratory failure. VITAL SIGNS: Temperature 97.7, pulse of 160, blood pressure 142/82, saturation 100%. Vent setting: Pressure control/assist control with rate of 16, IP 32, inspiratory time 1.2, PEEP 10, FIO2 of 100%. HEENT: Atraumatic, normocephalic. Pupils are equal, round, and reactive to light and accommodation. Extraocular muscles intact. Conjunctivae pink. Nonicteric sclerae. Oral mucosa within normal. NECK: Supple. No JVD, adenopathy, thyromegaly. Trachea in the midline. HEART: Tachycardic. Normal S1, S2. No murmurs, rubs or gallops noted. LUNGS: Bilateral equal air entry with coarse breath sounds, scattered wheezing ABDOMEN: Soft, obese, nontender, positive bowel sounds. EXTREMITIES: No cyanosis, clubbing. Trace to +1 edema. NEUROLOGIC: Intubated and sedated with Diprivan. DIAGNOSTIC STUDIES: EKG showed appears sinus tachycardia. Chest x-ray post-intubation showed diffuse pulmonary infiltrates. LABORATORY DATA: Sodium 143, potassium 5, chloride 115, CO2 of 18, BUN 14, creatinine 1.37, glucose 274. Lactic acid 2.3, AST 51, ALT 36, alkaline phosphatase 121. Troponin 0.09. BNP 368. Albumin 3.6. WBC 36, hemoglobin 14, hematocrit 44, platelet count of 353. INR 1.9, PT 9.4, PTT 22.9. IMPRESSION: 1. Acute hypercapnic and hypoxemic respiratory failure. 2. Diffuse bilateral pulmonary infiltrates. Differential diagnosis infectious process versus fluid overload. 3. Leukocytosis. 4. Chronic obstructive pulmonary disease exacerbation. 5. Acute kidney injury. 6. Hypertension. 7. Sinus tachycardia. 8. Obesity with underlying obstructive sleep apnea. RECOMMENDATIONS: 1. Continue with Diprivan infusion and we will add fentanyl drip for sedation and vent synchrony. Monitor neuro status closely and daily sedation vacation when appropriate. 2. Continue with vent support, maintain sats above 92%. 3. Bronchodilators and DuoNeb q.6 hours and we will initiate ICU vent bundle. Start Solu-Medrol 60 mg IV q.8 hours. 4. Monitor heart rate and blood pressure closely and Maintain MAP greater than 65 mmHg. Monitor cardiac enzymes. We will obtain 2D echo to evaluate LV function and to rule out regional wall motion abnormalities. Repeat lactic acid level. 5. Monitor renal function, I's and O's and electrolyte replacement as needed. Diurese with Lasix 40 mg IV x 1. 6. Keep n.p.o. for now. Monitor LFTs. Place on Pepcid for gastrointestinal prophylaxis. 7. Continue with broad spectrum antibiotics in the form of vancomycin, Zosyn and azithromycin. Monitor for signs of infection which include fever and WBC. Follow up on blood cultures. Check urinalysis with culture if indicated. In addition, we will obtain a sputum culture with Gram stain, strep pneumonia, legionella urinary antigen and we will send nasal washing for influenza screening. 8. Obtain CT scan of the chest without contrast for further evaluation of pulmonary parenchyma. Also, we will get a CT abdomen and pelvis to rule out acute abdominal process and given significant leukocytosis on arrival. 9. Place on medium sliding scale insulin with Accu-Cheks for glycemic control. 10. Monitor CBC. 11. Gastrointestinal prophylaxis with Pepcid and DVT prophylaxis with SCDs and Lovenox 40 mg subcutaneous daily. 12. Further recommendations will be based on hospital course. MD MARKUS Vickers/TANA , 08:10 AM , 08:46 AM MARIO
[2017-07-05] MEDS ORDERED: FAMOTIDINE 20 MG/2 ML VIAL IV PUSH SCH (09:00)
[2017-07-05] MEDS ORDERED: ENOXAPARIN SODIUM 40 MG/0.4 ML SYRINGE SQ SCH (09:00)
[2017-07-05] MEDS: INSULIN NovoLIN REGULAR SUPPLEMENTAL SCALE SQ SCH ×4 (09:02→20:15)
--- NOTE | 2017-07-05 09:38 | RADRPT ---
EXAM DATE/TIME: 07/05/2017 09:18 [facility] COMPARISON: No previous studies available for comparison. INDICATIONS : Sepsis, leukocytosis ORAL CONTRAST: No oral contrast ingested. RADIATION DOSE: 20.41 CTDIvol (mGy) ; Combined studies MEDICAL HISTORY : Chronic obstructive pulmonary disease. Hypertension. Breast cancer 2004 SURGICAL HISTORY : Tubal ligation. Mastectomy, right. ENCOUNTER: Initial ACUITY: 1 day PAIN SCALE: Non-responsive LOCATION: Abdomen TECHNIQUE: Volumetric scanning of the abdomen and pelvis was performed. Using automated exposure control and ad justment of the mA and/or kV according to patient size, radiation dose was kept as low as reasonably achievable to obtain optimal diagnostic quality images. DICOM format image data is available electro nically for review and comparison. FINDINGS: Airspace disease in both lung base is worse on the right. There is no pericardial effusion The liver and gallbladder are unremarkable Spleen and pancreas appear normal Adrenal glands unremarkable There is no renal mass There is no adenopathy. There is no ascites. Pelvic contents are unremarkable. Bone windows reveal only degenerative changes. CONCLUSION: Nonspecific findings appeared, most likely source of fever would be in the right lung. No inflammatory changes in the abdomen. I do not see evidence for pyelonephritis although subtle yoni nges could be missed without intravenous contrast. Jose Juan Wharton MD FACR on July 05, 2017 at 9:34 Board Certified Radiologist. This report was verified electronically.
--- NOTE | 2017-07-05 09:39 | RADRPT ---
EXAM DATE/TIME: 07/05/2017 09:18 [facility] COMPARISON: No previous studies available for comparison. INDICATIONS : Acute respiratory failure RADIATION DOSE: 20.41 CTDIvol (mGy) ; Combined studies MEDICAL HISTORY : Chronic obstructive pulmonary disease. Hypertension. Breast cancer 2004 SURGICAL HISTORY : Tubal ligation. Mastectomy, right. ENCOUNTER: Initial ACUITY: 1 day PAIN SCALE: Non-responsive LOCATION: chest TECHNIQUE: Volumetric scanning of the chest was performed. Using automated exposure control and adjustment of t he mA and/or kV according to patient size, radiation dose was kept as low as reasonably achievable to obtain optimal diagnostic quality images. DICOM format image data is available electronically for r eview and comparison. Follow-up recommendations for detected pulmonary nodules are based at a minimum on nodule size and pa tient risk factors according to Fleischner Society Guidelines. FINDINGS: ET tube in good position. Moderate air space disease is present in the right lung, less on the left. There is no air bronchograms as yet this looks inflammatory. There is no axillary adenopathy. The re is no mediastinal adenopathy. There is no pericardial effusion. CONCLUSION: Moderate air space disease both lungs worse on the right. Trace fluid on the right Jose Juan Wharton MD FACR on July 05, 2017 at 9:36 Board Certified Radiologist. This report was verified electronically.
[2017-07-05] MEDS ORDERED: MIDAZOLAM HCL 2 MG/2 ML VIAL IV PUSH ONE (10:00)
[2017-07-05] MEDS: MIDAZOLAM 100 MG/100 ML INJ 100 ML IV PRN (10:25)
[2017-07-05 11:20] LABS: BILIRUBIN, URINE NEG (NEG); BLOOD, URINE NEG (NEG); GLUCOSE,URINE NEG (NEG); HYALINE CAST, URINE 2 /lpf (RARE); KETONE, URINE NEG (NEG); MUCUS URINE FEW /lpf (OCC); NITRITE,URINE NEG (NEG); SQUAMOUS EPITHELIAL CELL URINE 7 /hpf (0-5); URINE COLOR LIGHT-YELLOW (YELLW/STRAW); URINE LEUKOCYTE ESTERASE NEG (NEG)
[2017-07-05] MEDS: RESP: ALBUTEROL 2.5 MG/IPRATROPIUM 0.5 MG NEB (SCH) INH ×3 (11:48→19:43)
[2017-07-05] MEDS ORDERED: VECURONIUM BROMIDE 10 MG VIAL IV PUSH ONE (12:00)
[2017-07-05 13:20] LABS: AUTOMATED NEUTROPHIL # 21.7 TH/MM3 (1.8-7.7); BASOPHIL % 0.1 % (0.0-2.0); HEMOGLOBIN 12.2 GM/DL (11.6-15.3); LYMPH % 2.4 % (9.0-44.0); LYMPHOCYTE # 0.6 TH/MM3 (1.0-4.8); MEAN CELL VOLUME 91.4 FL (80.0-100.0); MEAN CORPUSCULAR HEMOGLOBIN 29.4 PG (27.0-34.0); MEAN CORPUSCULAR HGB CONC 32.2 % (32.0-36.0); MEAN PLATELET VOLUME 9.6 FL (7.0-11.0); MONO % 1.2 % (0.0-8.0); MONOCYTE # 0.3 TH/MM3 (0-0.9); NEUT % 96.3 % (16.0-70.0); PLATELET COUNT 193 TH/MM3 (150-450); RED BLOOD COUNT 4.16 MIL/MM3 (4.00-5.30); RED CELL DISTRIBUTION WIDTH 14.8 % (11.6-17.2); WHITE BLOOD COUNT 22.5 TH/MM3 (4.0-11.0)
[2017-07-05 13:30] LABS: ALBUMIN 3.2 GM/DL (3.4-5.0); BICARBONATE 23.6 MEQ/L (21.0-32.0); CALCIUM 7.4 MG/DL (8.5-10.1); CALCIUM-PROTEIN CORRECTED 7.7 MG/DL (8.5-10.1); CREATININE 1.53 MG/DL (0.50-1.00); TOTAL BILIRUBIN ADULT 0.2 MG/DL (0.2-1.0); TOTAL PROTEIN 6.6 GM/DL (6.4-8.2)
[2017-07-05] MEDS ORDERED: ASPIRIN EC 325 MG TABEC PO ONE (15:00)
[2017-07-05] MEDS: methylPREDNISolone SOD SUCC 125 MG/2 ML VIAL IV PUSH SCH ×2 (15:12→22:03)
[2017-07-05] MEDS: RESP: ALBUTEROL 2.5 MG/IPRATROPIUM 0.5 MG NEB (PRN) NEB ×2 (15:49→17:32)
--- NOTE | 2017-07-05 17:21 | MB ---
cc: Denny Keith MD DATE: 07/05/2017 REASON FOR CONSULTATION: Evaluation of elevated troponin. HISTORY OF PRESENT ILLNESS: This is an intubated, 51-year-old female with COPD and respiratory failure. She was markedly hypercarbic prior to admission and she was noted to be very, very tachycardic. I cannot obtain any history from her because she is intubated. The patient has a longstanding history of COPD and at her last ER visit it was noted she was still smoking a pack a day. PAST MEDICAL AND SURGICAL HISTORY: Includes breast cancer with a lumpectomy. COPD. Apparently there has been some hypertension issues in the past. She has had a previous tubal ligation. SOCIAL HISTORY: Notable for 1 pack per day smoking history. MEDICATIONS: Charted. PHYSICAL EXAMINATION: GENERAL: Reveals an obese white female, sedated, currently on the ventilator. HEENT: Unremarkable. NECK: No bruits. CHEST: Shows pronounced expiratory wheezes. CARDIAC: Shows S1, S2, tachycardic. No murmurs, rubs or gallops. ABDOMEN: Soft, nontender. EXTREMITIES: No clubbing, cyanosis or edema. Pulses are intact. VITAL SIGNS: Blood pressures initially very elevated as high as 215/156 at 5:59 a.m. and her heart rate was 158. Blood pressure is now down to 92/56. She is febrile. DIAGNOSTIC STUDIES: Chest x-ray is markedly abnormal. Please see report. Labs are charted. Her troponin is elevated. IMPRESSION: Suspect the troponin is elevated secondary to sepsis and her chronic obstructive pulmonary disease and respiratory failure. I doubt this is acute coronary syndrome. She could have a component of myocardial ischemia from a type 2 event. I do not think this represents plaque rupture. I was asked about whether she needed systemic heparinization and I do not think I would do that at this point. RECOMMENDATIONS: I am going to add subcutaneous heparin 5000 units q.8 hours. Recommend continuation of daily aspirin. Recommend treatment of her primary lung problems. Once she gets better, we can consider a stress test or catheterization at that point. MD MAEVE Stone/TANA , 05:06 PM , 05:20 PM
--- NOTE | 2017-07-05 19:07 | PD.ID.CON ---
History of Present Illness Service ID Consult Requested By Reason for Consult Evaluation and mment of Sepsis, Pneumonia. Primary Care Physician No Primary Care Physician Diagnoses: History of Present Illness is a 51 y/o CF with PMHx of hypertension, COPD, obstructive sleep apnea on CPAP, who presented to [facility] ED via ambulance with tachypnea, tachycardia with heart rate in the 180s. She was initially placed on a CPAP. Her saturation was 94% and was given 6 mg of adenosine for a possible SVT without any changes. Due to worsening respiratory status as she was subsequently intubated in the ER. ABG post-intubation showed acute hypercapnic and hypoxemic respiratory failure. Her laboratory data significant for leukocytosis with a WBC of 36.7, mild acute kidney injury with creatinine level of 1.37. Also, her lactic acid was measured at 2.3 and BNP of 368. Chest x-ray post-intubation showed diffuse bilateral pulmonary infiltrates. In the ER, she also received Rocephin, azithromycin. Sepsis workup was initiated and patient started on Zosyn, Vanco IV, Zithromax. Flu antigen is negative but Flu PCR ordered. Legionella Ag negative. Strep pneumo neg. BCx negative so far. ID consulted for evaluation and Mment of Severe Sepsis and Pneumonia. Past Family Social History Allergies: Coded Allergies: bee venom protein (honey bee) (Unverified Allergy, Severe, anaphylaxis, ) Past Medical History Significant for COPD, hypertension, history of right breast cancer in 2004, sleep apnea. Past Surgical History Previous tubal ligation, previous right breast mastectomy, lumpectomy. Reported Medications Reported Meds & Active Scripts Active Albuterol Neb (Albuterol Sulfate) 2.5 Mg/3 Ml Neb 2.5 Mg NEB Q4HR NEB PRN Naproxen 500 Mg Tab 500 Mg PO BID 7 Days Nebulizer 1 Mis Mis Ea .ROUTE DIRECTED Albuterol Neb (Albuterol Sulfate) 0.63 Mg/3 Ml Neb 0.63 Mg NEB QID NEB PRN Ventolin Hfa 18 GM Inh (Albuterol Sulfate) 90 Mcg/Act Aer 2 Puff INH Q4-6H PRN Prednisone 20 Mg Tab 40 Mg PO DAILY Take 40 mg (2 tablets) daily for 5 days Ventolin Hfa 18 GM Inh (Albuterol Sulfate) 90 Mcg/Act Aer 2 Puff INH Q6H PRN Reported Meloxicam 7.5 Mg Tab 7.5 Mg PO DAILY Sertraline (Sertraline HCl) 100 Mg Tab 100 Mg PO DAILY Clonidine (Clonidine HCl) 0.1 Mg Tab 0.1 Mg PO BID Lisinopril 10 Mg Tab 10 Mg PO DAILY Trazodone (Trazodone HCl) 100 Mg Tablet 100 Mg PO HS Olanzapine 10 Mg Tab 10 Mg PO DAILY Active Ordered Medications Current Medications Medications (Trade) Dose Ordered Sig/Ellen Route Start Time Stop Time Status Last Admin (NS Flush) 2 ml UNSCH PRN IVF 07/05/17 06:00 (NS Flush) 2 ml UNSCH PRN IVF 07/05/17 06:30 Propofol 100 ml @ 0 mls/hr TITRATE PRN IV 07/05/17 06:30 07/05/17 10:27 (Duoneb Neb) 1 ampule Q6HR NEB INH 07/05/17 10:00 07/05/17 15:48 Miscellaneous Information 1 Q361D XX 07/05/17 08:00 (Chlorhexidine 2% Cloth) 3 pack Taper DAILY@04 TOP 07/06/17 04:00 07/02/18 03:59 (Chlorhexidine 2% Cloth) 3 pack UNSCH PRN TOP 07/05/17 08:00 (Cecily-Colace) 1 tab BID PO 07/05/17 09:00 (Milk Of Magnesia Liq) 30 ml Q12H PRN PO 07/05/17 08:00 (Senokot) 17.2 mg Q12H PRN PO 07/05/17 08:00 (Dulcolax Supp) 10 mg DAILY PRN RECTAL 07/05/17 08:00 (Lactulose Liq) 30 ml DAILY PRN PO 07/05/17 08:00 (SoluMEDROL INJ) 60 mg Q8HR IV PUSH 07/05/17 14:00 07/05/17 15:12 Piperacillin Sod/ Tazobactam Sod 100 ml @ 200 mls/hr Q6H IV 07/05/17 09:00 07/05/17 15:12 Pharmacy Profile Note 0 ml @ 0 mls/hr UNSCH OTHER 07/05/17 08:00 Azithromycin 500 mg/Sodium Chloride 250 ml @ 250 mls/hr Q24H IV 07/06/17 06:00 Fentanyl Citrate 250 ml @ 5 mls/hr TITRATE PRN IV 07/05/17 08:00 07/05/17 08:36 (D50w (Vial) Inj) 50 ml UNSCH PRN IV PUSH 07/05/17 08:15 (Glucagon Inj) 1 mg UNSCH PRN OTHER 07/05/17 08:15 (NovoLIN R SUPPLEMENTAL SCALE) 1 Q4H SQ 07/05/17 08:15 07/05/17 16:15 Vancomycin HCl 1250 mg/Sodium Chloride 262.5 ml @ 250 mls/hr Q24H IV 07/06/17 08:00 Miscellaneous Information SPECIFIC LAB TO BE DRAWN:VANCOMY... ONCE ONCE .XX 07/08/17 07:45 07/08/17 07:46 Midazolam HCl 100 ml @ 2 mls/hr TITRATE PRN IV 07/05/17 10:00 07/05/17 10:25 (Duoneb Neb) 1 ampule Q2HR NEB PRN NEB 07/05/17 15:00 07/05/17 17:32 (Pepcid Inj) 10 mg Q12HR IV PUSH 07/05/17 21:00 (Heparin Inj) 5,000 units Q8HR SQ 07/06/17 06:00 (Tamiflu) 75 mg BID PO 07/05/17 21:00 UNV Family History Could not be obtained. Social History Lives with Boyfriend, originally from [place]. Has adult children in other states. Physical Exam Vital Signs Vital Signs Date Time Temp Pulse Resp B/P (MAP) Pulse Ox O2 Delivery O2 Flow Rate FiO2 07/05/17 18:00 115 07/05/17 18:00 115 26 93/57 (69) 92 07/05/17 17:00 99.2 114 26 96/54 (68) 91 07/05/17 16:00 118 07/05/17 16:00 40 07/05/17 16:00 98.4 118 26 92/56 (68) 92 07/05/17 15:50 92 40 07/05/17 15:00 117 26 90/54 (66) 94 07/05/17 14:04 40 07/05/17 14:00 112 26 86/51 (63) 94 07/05/17 14:00 112 4/20/18 13:00 109 26 81/50 (60) 93 18 12:03 96 40 /18 12:00 98.0 115 26 74/50 (58) 96 18 12:00 115 /18 11:00 40 2018 11:00 119 17 112/58 (76) 95 18 10:16 95 40 18 10:00 130 /2018 10:00 130 26 113/80 (91) 96 18 09:38 97.4 140 20 138/99 (112) 100 07/05/17 09:30 100 18 09:20 147 20 100 60 07/05/17 09:07 60 07/05/17 08:00 157 28 152/95 (114) 100 Ventilator 60 07/05/17 07:15 153 16 125/74 (91) 100 Ventilator 50 07/05/17 07:00 100 Ventilator 16.00 100 07/05/17 06:49 162 20 229/105 (146) 100 Ventilator 50 07/05/17 06:21 132 18 196/105 (135) 100 Ventilator 50 07/05/17 06:15 50 /18 06:14 92 100 18 06:13 140 38 181/104 (129) 91 BiPAP 07/05/17 05:59 158 38 215/156 (175) 100 BiPAP 18 05:55 97.7 07/05/17 05:53 100 BiPAP 18 05:53 98 BiPAP 18 05:49 164 40 132/89 (103) BiPAP 18 05:45 98 80 Physical Exam GENERAL: Obese, well-developed patient. SKIN: No rashes, ecchymoses or lesions. Cool and dry. HEAD: Atraumatic. Normocephalic. No temporal or scalp tenderness. EYES: Pupils equal round and reactive. Extraocular motions intact. No scleral icterus. No injection or drainage. ENT: Intubated. NECK: Trachea midline.Supple, nontender, no meningeal signs. CARDIOVASCULAR: Regular rate and rhythm without murmurs, gallops, or rubs. RESPIRATORY: Clear to auscultation. Breath sounds equal bilaterally. GASTROINTESTINAL: Abdomen soft, non-tender, nondistended. Obese. MUSCULOSKELETAL: Extremities without clubbing, cyanosis, or edema. No joint tenderness, effusion, or edema noted. No calf tenderness. Negative Homans sign bilaterally. NEUROLOGICAL: Sedated. Psych could not be assessed. IV line sites with no e.o infection Laboratory Laboratory Tests Test 07/05/17 06:20 07/05/17 06:30 07/05/17 07:00 07/05/17 10:00 White Blood Count 36.7 Red Blood Count 4.77 Hemoglobin 14.1 Hematocrit 44.5 Mean Corpuscular Volume 93.2 Mean Corpuscular Hemoglobin 29.5 Mean Corpuscular Hemoglobin Concent 31.7 Red Cell Distribution Width 14.7 Platelet Count 353 Mean Platelet Volume 10.2 Neutrophils (%) (Auto) 43.6 Lymphocytes (%) (Auto) 49.0 Monocytes (%) (Auto) 5.2 Eosinophils (%) (Auto) 1.7 Basophils (%) (Auto) 0.5 Neutrophils # (Auto) 16.0 Lymphocytes # (Auto) 18.0 Monocytes # (Auto) 1.9 Eosinophils # (Auto) 0.6 Basophils # (Auto) 0.2 CBC Comment AUTO DIFF Differential Total Cells Counted 100 Neutrophils % (Manual) 43 Lymphocytes % 52 Monocytes % 4 Eosinophils % 1 Neutrophils # (Manual) 15.8 Differential Comment FINAL DIFF MANUAL Platelet Estimate NORMAL Platelet Morphology Comment NORMAL Prothrombin Time 9.4 Prothromb Time International Ratio 0.9 Activated Partial Thromboplast Time 22.9 Blood Urea Nitrogen 14 Creatinine 1.37 Random Glucose 274 Total Protein 7.6 Albumin 3.6 Calcium Level 8.4 Magnesium Level 2.0 Alkaline Phosphatase 121 Aspartate Amino Transf (AST/SGOT) 51 Alanine Aminotransferase (ALT/SGPT) 36 Total Bilirubin 0.2 Sodium Level 143 Potassium Level 5.0 Chloride Level 115 Carbon Dioxide Level 18.3 Anion Gap 10 Estimat Glomerular Filtration Rate 41 Total Creatine Kinase 125 Creatine Kinase MB 2.5 Troponin I 0.09 B-Type Natriuretic Peptide 368 Lactic Acid Level 2.3 Urine Color LIGHT-YELLOW Urine Turbidity CLEAR Urine pH 6.0 Urine Specific Lamar 1.014 Urine Protein TRACE Urine Glucose (UA) NEG Urine Ketones NEG Urine Occult Blood NEG Urine Nitrite NEG Urine Bilirubin NEG Urine Urobilinogen LESS THAN 2.0 Urine Leukocyte Esterase NEG Urine RBC 1 Urine WBC 1 Urine Squamous Epithelial Cells 7 Urine Hyaline Casts 2 Urine Mucus FEW Microscopic Urinalysis Comment CATH-CULT NOT IND Blood Gas Puncture Site RT RADIAL Blood Gas Patient Temperature 98.6 Blood Gas HCO3 21 Blood Gas Base Excess -8.6 Blood Gas Oxygen Saturation 95 Arterial Blood pH 7.02 Arterial Blood Partial Pressure CO2 85 Arterial Blood Partial Pressure O2 129 Arterial Blood Oxygen Content 18.7 Arterial Blood Carboxyhemoglobin 1.4 Arterial Blood Methemoglobin 0.8 Blood Gas Hemoglobin 13.9 Oxygen Delivery Device VENTILATOR Blood Gas Ventilator Setting PC/AC Blood Gas Inspired Oxygen 100 Urine Opiates Screen NEG Urine Barbiturates Screen NEG Urine Amphetamines Screen NEG Urine Benzodiazepines Screen NEG Urine Cocaine Screen NEG Urine Cannabinoids Screen POS Nasal Screen MRSA (PCR) MRSA NOT DETECTED Test 07/05/17 11:30 07/05/17 12:50 07/05/17 13:35 07/05/17 14:25 Blood Gas Puncture Site RT RADIAL RT RADIAL Blood Gas Patient Temperature 98.6 98.6 Blood Gas HCO3 23 21 Blood Gas Base Excess -4.8 -4.5 Blood Gas Oxygen Saturation 96 89 Arterial Blood pH 7.15 7.29 Arterial Blood Partial Pressure CO2 68 45 Arterial Blood Partial Pressure O2 177 64 Arterial Blood Oxygen Content 18.3 15.8 Arterial Blood Carboxyhemoglobin 0.6 1.0 Arterial Blood Methemoglobin 1.5 1.5 Blood Gas Hemoglobin 13.2 12.6 Oxygen Delivery Device VENTILATOR VENTILATOR Blood Gas Ventilator Setting PRVC20/550/1.1/+5 PCAC26/IP32/IT0.9/+5 Blood Gas Inspired Oxygen 40 40 White Blood Count 22.5 Red Blood Count 4.16 Hemoglobin 12.2 Hematocrit 38.0 Mean Corpuscular Volume 91.4 Mean Corpuscular Hemoglobin 29.4 Mean Corpuscular Hemoglobin Concent 32.2 Red Cell Distribution Width 14.8 Platelet Count 193 Mean Platelet Volume 9.6 Neutrophils (%) (Auto) 96.3 Lymphocytes (%) (Auto) 2.4 Monocytes (%) (Auto) 1.2 Eosinophils (%) (Auto) 0.0 Basophils (%) (Auto) 0.1 Neutrophils # (Auto) 21.7 Lymphocytes # (Auto) 0.6 Monocytes # (Auto) 0.3 Eosinophils # (Auto) 0.0 Basophils # (Auto) 0.0 CBC Comment DIFF FINAL Differential Comment Blood Urea Nitrogen 18 Creatinine 1.53 Random Glucose 83 Total Protein 6.6 Albumin 3.2 Calcium Level 7.4 Alkaline Phosphatase 81 Aspartate Amino Transf (AST/SGOT) 42 Alanine Aminotransferase (ALT/SGPT) 34 Total Bilirubin 0.2 Sodium Level 146 Potassium Level 4.8 Chloride Level 118 Carbon Dioxide Level 23.6 Anion Gap 4 Estimat Glomerular Filtration Rate 36 Protein Corrected Calcium 7.7 Troponin I 2.91 Lactic Acid Level 1.8 Date/Time Source Procedure Growth Status 07/05/17 06:30 Blood Peripheral Aerobic Blood Culture Pending Received 07/05/17 06:30 Blood Peripheral Anaerobic Blood Culture Pending Received 07/05/17 10:10 Sputum Endotracheal Gram Stain - Final Resulted 07/05/17 10:10 Sputum Endotracheal Sputum Culture Pending Resulted 07/05/17 07:00 Urine Catheterized Urine Legionella Antigen - Final PRESUMPTIVE NEGATIVE FOR LEGIONELLA P... Complete 07/05/17 07:00 Urine Catheterized Urine Streptococcus pneumoniae Antigen (M - Final PRESUMPTIVE NEGATIVE FOR STREPTOCOCCU... Complete Result Diagram: 07/05/17 1250 07/05/17 1250 Imaging Last Impressions Chest X-Ray 07/05/17 0551 Signed Impressions: Service Date/Time: Wednesday, July 05, 2017 06:43 - CONCLUSION: Diffuse bilateral pulmonary infiltrates. Henrik Valero Jr., MD Chest CT 07/05/17 0000 Signed Impressions: Service Date/Time: Wednesday, July 05, 2017 09:18 - CONCLUSION: Moderate air space disease both lungs worse on the right. Trace fluid on the right Jose Juan Wharton MD FACR Abdomen/Pelvis CT 07/05/17 0000 Signed Impressions: Service Date/Time: Wednesday, July 05, 2017 09:18 - CONCLUSION: Nonspecific findings appeared, most likely source of fever would be in the right lung. No inflammatory changes in the abdomen. I do not see evidence for pyelonephritis although subtle changes could be missed without intravenous contrast. Jose Juan Wharton MD FACR Assessment and Plan Assessment and Plan Severe Sepsis present on admission (leucocytosis, tachycardia, pneumonia) GPC in sputum :?Staph MRSA or Strep. Bacterial pneumonia. Pneumonia: CAP vs HCAP vs atypical. Patient has been intubated 3 times in past for COPD or drug overdose issues. COPD acute exacerbation. Rule out influenza pneumonia. Rule out Endocarditis. Acute resp failure on vent. Acute renal failure: prerenal, sepsis. Acute metabolic encephalopathy: sepsis, sedation Recs: Continue Zosyn IV Continue Vanco IV(target 15-20: pneumonia and bacteremia cultures pending) Continue Azithro IV Resp panel to check Influenza pcr. Start Tamiflu Follow resp panel. Follow cultures Follow clinically. Patients Boyfriend was very disruptive and rude. 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 Consider palliative care consult to address goals of therapy and POA issues. to cover for me this weekend. Bettie White MD Jul 05, 2017 19:07
[2017-07-05] MEDS: FAMOTIDINE 20 MG/2 ML VIAL IV PUSH SCH (22:02)
[2017-07-05] MEDS: DOCUSATE SODIUM 50 MG/SENNA 8.6 MG TAB PO SCH (22:03)
[2017-07-05] MEDS: OSELTAMIVIR PHOSPHATE 75 MG CAP PO SCH (22:46)
[2017-07-06] VITALS (9 sets, daily range): BP systolic 91–127; BP diastolic 55–73; PULSE 99–123; RESP 9–28; TEMP 98.1–98.4; O2SAT 96–100
[2017-07-06] MEDS: INSULIN NovoLIN REGULAR SUPPLEMENTAL SCALE SQ SCH ×4 (01:11→11:27)
[2017-07-06 02:35] LABS: AUTOMATED NEUTROPHIL # 23.6 TH/MM3 (1.8-7.7); HEMATOCRIT 39.1 % (35.0-46.0); HEMOGLOBIN 12.6 GM/DL (11.6-15.3); LYMPHOCYTE # 0.7 TH/MM3 (1.0-4.8); MEAN CELL VOLUME 92.1 FL (80.0-100.0); MEAN CORPUSCULAR HEMOGLOBIN 29.8 PG (27.0-34.0); MEAN CORPUSCULAR HGB CONC 32.4 % (32.0-36.0); MONO % 1.2 % (0.0-8.0); MONOCYTE # 0.3 TH/MM3 (0-0.9); NEUT % 95.8 % (16.0-70.0); PLATELET COUNT 222 TH/MM3 (150-450); RED BLOOD COUNT 4.24 MIL/MM3 (4.00-5.30); WHITE BLOOD COUNT 24.7 TH/MM3 (4.0-11.0)
[2017-07-06 02:58] LABS: ALBUMIN 3.5 GM/DL (3.4-5.0); ALKALINE PHOSPHATASE 76 U/L (45-117); ALT (GPT) 35 U/L (10-53); AST (GOT) 47 U/L (15-37); BICARBONATE 22.5 MEQ/L (21.0-32.0); BLOOD UREA NITROGEN 30 MG/DL (7-18); CALCIUM 7.7 MG/DL (8.5-10.1); CHLORIDE 114 MEQ/L (98-107); CREATININE 1.82 MG/DL (0.50-1.00); GLOMERULAR FILTRATION RATE 29 ML/MIN (>89); GLUCOSE,RANDOM 130 MG/DL (74-106); SODIUM (NA) 145 MEQ/L (136-145); TOTAL BILIRUBIN ADULT 0.2 MG/DL (0.2-1.0); TOTAL PROTEIN 7.3 GM/DL (6.4-8.2)
[2017-07-06] MEDS: PIPERACIL-TAZO 4.5 GM PREMIX 100 ML IV SCH ×2 (03:13→08:34)
[2017-07-06] MEDS: MIDAZOLAM 100 MG/100 ML INJ 100 ML IV PRN (03:16)
[2017-07-06] MEDS ORDERED: CHLORHEXIDINE GLUCONATE 2 % 1 PACK (2 CLOTHS) TOP SCH (04:00)
[2017-07-06] MEDS: RESP: ALBUTEROL 2.5 MG/IPRATROPIUM 0.5 MG NEB (SCH) INH ×2 (04:03→07:50)
[2017-07-06] MEDS: fentaNYL DRIP 250 ML IV PRN (05:02)
[2017-07-06] MEDS: methylPREDNISolone SOD SUCC 125 MG/2 ML VIAL IV PUSH SCH (05:03)
[2017-07-06] MEDS ORDERED: HEPARIN SODIUM - SQ 10,000 UNITS/ML VIAL SQ SCH (06:00)
[2017-07-06] MEDS ORDERED: AZITHROMYCIN INJ 500 MG in SODIUM CHLOR 0.9% 250 ML INJ 250 ML IV SCH (06:00)
[2017-07-06] MEDS ORDERED: VANCOMYCIN INJ 1,250 MG in SODIUM CHLOR 0.9% 250 ML INJ 250 ML IV SCH (08:00)
[2017-07-06] MEDS: DEXMEDETOMIDINE INJ 200 MCG in SODIUM CHLORIDE 0.9% INJ 50 ML IV PRN ×2 (08:33→11:26)
[2017-07-06] MEDS: OSELTAMIVIR PHOSPHATE 75 MG CAP PO SCH (08:34)
[2017-07-06] MEDS: FAMOTIDINE 20 MG/2 ML VIAL IV PUSH SCH (08:34)
[2017-07-06] MEDS: DOCUSATE SODIUM 50 MG/SENNA 8.6 MG TAB PO SCH (08:47)
--- NOTE | 2017-07-06 09:02 | EKG ---
Date Performed: 07/05/2017 Time Performed: 06:16:40 PTAGE: 51 years EKG: Supraventricular tachycardia NO PREVIOUS TRACING DOCTOR: Morales Parks Interpretating Date/Time 07/06/2017 08:59:58
--- NOTE | 2017-07-06 09:39 | HHI.IDPN ---
Subjective Subjective Remarks ID COVERAGE is a 51 y/o CF with PMHx of hypertension, COPD, obstructive sleep apnea on CPAP, who presented to [facility] ED via ambulance with tachypnea, tachycardia with heart rate in the 180s. She was initially placed on a CPAP. Her saturation was 94% and was given 6 mg of adenosine for a possible SVT without any changes. Due to worsening respiratory status as she was subsequently intubated in the ER. ABG post-intubation showed acute hypercapnic and hypoxemic respiratory failure. Her laboratory data significant for leukocytosis with a WBC of 36.7, mild acute kidney injury with creatinine level of 1.37. Also, her lactic acid was measured at 2.3 and BNP of 368. Chest x-ray post-intubation showed diffuse bilateral pulmonary infiltrates. In the ER, she also received Rocephin, azithromycin. Sepsis workup was initiated and patient started on Zosyn, Vanco IV, Zithromax. Flu antigen is negative but Flu PCR ordered. Legionella Ag negative. Strep pneumo neg. BCx negative so far. ID consulted for evaluation and Mment of Severe Sepsis and Pneumonia. Notes reviewed D/W RN Patient on high dose precedex Awake and agitated, has restraints, trying to reach her ET Temps ok BP ok, not on pressors Legio and pneumo Ag negative resp panel pending Influenza negative CXR with maile infiltrates CT A/P ok Creatinine rising Lactic acid normal now Antibiotics Zithromax Vancomycin Zosyn Current Medications Medications (Trade) Dose Ordered Sig/Ellen Route Start Time Stop Time Status Last Admin (NS Flush) 2 ml UNSCH PRN IVF 07/05/17 06:00 (NS Flush) 2 ml UNSCH PRN IVF 07/05/17 06:30 Propofol 100 ml @ 0 mls/hr TITRATE PRN IV 07/05/17 06:30 07/05/17 10:27 (Duoneb Neb) 1 ampule Q6HR NEB INH 07/05/17 10:00 07/06/17 07:50 Miscellaneous Information 1 Q361D XX 07/05/17 08:00 (Chlorhexidine 2% Cloth) 3 pack Taper DAILY@04 TOP 07/06/17 04:00 07/02/18 03:59 07/06/17 05:03 (Chlorhexidine 2% Cloth) 3 pack UNSCH PRN TOP 07/05/17 08:00 (Cecily-Colace) 1 tab BID PO 07/05/17 09:00 07/06/17 08:47 (Milk Of Magnesia Liq) 30 ml Q12H PRN PO 07/05/17 08:00 (Senokot) 17.2 mg Q12H PRN PO 07/05/17 08:00 (Dulcolax Supp) 10 mg DAILY PRN RECTAL 07/05/17 08:00 (Lactulose Liq) 30 ml DAILY PRN PO 07/05/17 08:00 (SoluMEDROL INJ) 60 mg Q8HR IV PUSH 07/05/17 14:00 07/06/17 05:03 Piperacillin Sod/ Tazobactam Sod 100 ml @ 200 mls/hr Q6H IV 07/05/17 09:00 07/06/17 08:34 Pharmacy Profile Note 0 ml @ 0 mls/hr UNSCH OTHER 07/05/17 08:00 Azithromycin 500 mg/Sodium Chloride 250 ml @ 250 mls/hr Q24H IV 07/06/17 06:00 07/06/17 05:02 Fentanyl Citrate 250 ml @ 5 mls/hr TITRATE PRN IV 07/05/17 08:00 07/06/17 05:02 (D50w (Vial) Inj) 50 ml UNSCH PRN IV PUSH 07/05/17 08:15 (Glucagon Inj) 1 mg UNSCH PRN OTHER 07/05/17 08:15 (NovoLIN R SUPPLEMENTAL SCALE) 1 Q4H SQ 07/05/17 08:15 07/06/17 05:09 Vancomycin HCl 1250 mg/Sodium Chloride 262.5 ml @ 250 mls/hr Q24H IV 07/06/17 08:00 07/06/17 08:34 Miscellaneous Information SPECIFIC LAB TO BE DRAWN:VANCOMY... ONCE ONCE .XX 07/08/17 07:45 07/08/17 07:46 Midazolam HCl 100 ml @ 2 mls/hr TITRATE PRN IV 07/05/17 10:00 07/06/17 03:16 (Duoneb Neb) 1 ampule Q2HR NEB PRN NEB 07/05/17 15:00 07/05/17 17:32 (Pepcid Inj) 10 mg Q12HR IV PUSH 07/05/17 21:00 07/06/17 08:34 (Heparin Inj) 5,000 units Q8HR SQ 07/06/17 06:00 07/06/17 05:03 (Tamiflu) 75 mg BID PO 07/05/17 21:00 07/06/17 08:34 Dexmedetomidine HCl 200 mcg/ Sodium Chloride 52 ml @ 5.11 mls/hr TITRATE PRN IV 07/06/17 09:00 07/06/17 08:33 Past Medical History Significant for COPD, hypertension, history of right breast cancer in 2004, sleep apnea. Past Surgical History Previous tubal ligation, previous right breast mastectomy, lumpectomy. Allergies: Coded Allergies: bee venom protein (honey bee) (Unverified Allergy, Severe, anaphylaxis, ) Objective . Vital Signs Date Time Temp Pulse Resp B/P (MAP) Pulse Ox O2 Delivery O2 Flow Rate FiO2 07/06/17 07:51 100 50 07/06/17 06:00 99 26 91/62 (72) 100 07/06/17 06:00 99 07/06/17 05:00 114 28 127/67 (87) 99 07/06/17 05:00 114 07/06/17 04:04 100 50 07/06/17 04:00 50 07/06/17 04:00 102 07/06/17 04:00 98.4 102 23 116/65 (82) 100 07/06/17 03:00 123 25 117/73 (88) 100 07/06/17 03:00 123 07/06/17 02:00 104 07/06/17 02:00 104 9 113/72 (86) 100 07/06/17 00:00 107 07/06/17 00:00 50 07/06/17 00:00 98.1 107 26 100/55 (70) 98 07/05/17 23:31 98 50 07/05/17 22:00 121 07/05/17 22:00 50 07/05/17 22:00 121 26 116/71 (86) 100 07/05/17 20:00 40 07/05/17 20:00 109 07/05/17 20:00 98.8 109 26 92/55 (67) 91 07/05/17 19:35 92 45 07/05/17 18:00 115 07/05/17 18:00 115 26 93/57 (69) 92 07/05/17 17:00 99.2 114 26 96/54 (68) 91 07/05/17 16:00 118 07/05/17 16:00 40 07/05/17 16:00 98.4 118 26 92/56 (68) 92 07/05/17 15:50 92 40 07/05/17 15:00 117 26 90/54 (66) 94 07/05/17 14:04 40 07/05/17 14:00 112 26 86/51 (63) 94 07/05/17 14:00 112 07/05/17 13:00 109 26 81/50 (60) 93 07/05/17 12:03 96 40 07/05/17 12:00 98.0 115 26 74/50 (58) 96 07/05/17 12:00 115 07/05/17 11:00 40 07/05/17 11:00 119 17 112/58 (76) 95 07/05/17 10:16 95 40 07/05/17 10:00 130 07/05/17 10:00 130 26 113/80 (91) 96 07/05/17 09:38 97.4 140 20 138/99 (112) 100 . Laboratory Tests Test 07/05/17 06:20 07/05/17 12:50 07/06/17 01:45 White Blood Count 36.7 TH/MM3 22.5 TH/MM3 24.7 TH/MM3 Red Blood Count 4.77 MIL/MM3 4.16 MIL/MM3 4.24 MIL/MM3 Hemoglobin 14.1 GM/DL 12.2 GM/DL 12.6 GM/DL Hematocrit 44.5 % 38.0 % 39.1 % Mean Corpuscular Volume 93.2 FL 91.4 FL 92.1 FL Mean Corpuscular Hemoglobin 29.5 PG 29.4 PG 29.8 PG Mean Corpuscular Hemoglobin Concent 31.7 % 32.2 % 32.4 % Red Cell Distribution Width 14.7 % 14.8 % 15.0 % Platelet Count 353 TH/MM3 193 TH/MM3 222 TH/MM3 Mean Platelet Volume 10.2 FL 9.6 FL 10.0 FL Neutrophils (%) (Auto) 43.6 % 96.3 % 95.8 % Lymphocytes (%) (Auto) 49.0 % 2.4 % 3.0 % Monocytes (%) (Auto) 5.2 % 1.2 % 1.2 % Eosinophils (%) (Auto) 1.7 % 0.0 % 0.0 % Basophils (%) (Auto) 0.5 % 0.1 % 0.0 % Neutrophils # (Auto) 16.0 TH/MM3 21.7 TH/MM3 23.6 TH/MM3 Lymphocytes # (Auto) 18.0 TH/MM3 0.6 TH/MM3 0.7 TH/MM3 Monocytes # (Auto) 1.9 TH/MM3 0.3 TH/MM3 0.3 TH/MM3 Eosinophils # (Auto) 0.6 TH/MM3 0.0 TH/MM3 0.0 TH/MM3 Basophils # (Auto) 0.2 TH/MM3 0.0 TH/MM3 0.0 TH/MM3 CBC Comment AUTO DIFF DIFF FINAL DIFF FINAL Differential Total Cells Counted 100 Neutrophils % (Manual) 43 % Lymphocytes % 52 % Monocytes % 4 % Eosinophils % 1 % Neutrophils # (Manual) 15.8 TH/MM3 Differential Comment FINAL DIFF MANUAL Platelet Estimate NORMAL Platelet Morphology Comment NORMAL Laboratory Tests Test 07/05/17 06:20 07/05/17 06:30 07/05/17 12:50 07/05/17 13:35 Blood Urea Nitrogen 14 MG/DL 18 MG/DL Creatinine 1.37 MG/DL 1.53 MG/DL Random Glucose 274 MG/DL 83 MG/DL Total Protein 7.6 GM/DL 6.6 GM/DL Albumin 3.6 GM/DL 3.2 GM/DL Calcium Level 8.4 MG/DL 7.4 MG/DL Magnesium Level 2.0 MG/DL Alkaline Phosphatase 121 U/L 81 U/L Aspartate Amino Transf (AST/SGOT) 51 U/L 42 U/L Alanine Aminotransferase (ALT/SGPT) 36 U/L 34 U/L Total Bilirubin 0.2 MG/DL 0.2 MG/DL Sodium Level 143 MEQ/L 146 MEQ/L Potassium Level 5.0 MEQ/L 4.8 MEQ/L Chloride Level 115 MEQ/L 118 MEQ/L Carbon Dioxide Level 18.3 MEQ/L 23.6 MEQ/L Anion Gap 10 MEQ/L 4 MEQ/L Estimat Glomerular Filtration Rate 41 ML/MIN 36 ML/MIN Total Creatine Kinase 125 U/L Creatine Kinase MB 2.5 NG/ML Troponin I 0.09 NG/ML 2.91 NG/ML B-Type Natriuretic Peptide 368 PG/ML Lactic Acid Level 2.3 mmol/L 1.8 mmol/L Protein Corrected Calcium 7.7 MG/DL Test 07/05/17 18:54 07/05/17 19:02 07/06/17 01:45 Procalcitonin 6.64 ng/mL Troponin I 2.25 NG/ML 3.30 NG/ML Blood Urea Nitrogen 30 MG/DL Creatinine 1.82 MG/DL Random Glucose 130 MG/DL Total Protein 7.3 GM/DL Albumin 3.5 GM/DL Calcium Level 7.7 MG/DL Alkaline Phosphatase 76 U/L Aspartate Amino Transf (AST/SGOT) 47 U/L Alanine Aminotransferase (ALT/SGPT) 35 U/L Total Bilirubin 0.2 MG/DL Sodium Level 145 MEQ/L Potassium Level 5.1 MEQ/L Chloride Level 114 MEQ/L Carbon Dioxide Level 22.5 MEQ/L Anion Gap 9 MEQ/L Estimat Glomerular Filtration Rate 29 ML/MIN Microbiology Date/Time Source Procedure Growth Status 07/05/17 06:30 Blood Peripheral Aerobic Blood Culture Pending Received 07/05/17 06:30 Blood Peripheral Anaerobic Blood Culture Pending Received 07/05/17 06:25 Blood Peripheral Aerobic Blood Culture Pending Received 07/05/17 06:25 Blood Peripheral Anaerobic Blood Culture Pending Received 07/05/17 10:10 Sputum Endotracheal Gram Stain - Final Resulted 07/05/17 10:10 Sputum Endotracheal Sputum Culture Pending Resulted 07/05/17 07:50 Nasal Aspirate Influenza Types A,B Antigen (JAIME) - Final NEGATIVE FOR FLU A AND B ANTIGEN.... Complete 07/05/17 07:00 Urine Catheterized Urine Legionella Antigen - Final PRESUMPTIVE NEGATIVE FOR LEGIONELLA P... Complete 07/05/17 07:00 Urine Catheterized Urine Streptococcus pneumoniae Antigen (M - Final PRESUMPTIVE NEGATIVE FOR STREPTOCOCCU... Complete Imaging Last Impressions Chest X-Ray 07/05/17 0551 Signed Impressions: Service Date/Time: Wednesday, July 05, 2017 06:43 - CONCLUSION: Diffuse bilateral pulmonary infiltrates. Henrik Valero Jr., MD Chest CT 07/05/17 0000 Signed Impressions: Service Date/Time: Wednesday, July 05, 2017 09:18 - CONCLUSION: Moderate air space disease both lungs worse on the right. Trace fluid on the right Jose Juan Wharton MD FACR Abdomen/Pelvis CT 07/05/17 0000 Signed Impressions: Service Date/Time: Wednesday, July 05, 2017 09:18 - CONCLUSION: Nonspecific findings appeared, most likely source of fever would be in the right lung. No inflammatory changes in the abdomen. I do not see evidence for pyelonephritis although subtle changes could be missed without intravenous contrast. Jose Juan Wharton MD FACR Physical Exam GENERAL: Obese, well-developed patient. awake and restless, on the vent, has restraints SKIN: No rashes, ecchymoses or lesions. Cool and dry. HEAD: Atraumatic. Normocephalic. No temporal or scalp tenderness. EYES: Pupils equal round and reactive. Extraocular motions intact. No scleral icterus. No injection or drainage. ENT: Intubated. NECK: Trachea midline.Supple, nontender, no meningeal signs. CARDIOVASCULAR: Regular rate and rhythm without murmurs, gallops, or rubs. RESPIRATORY: Coarse breath sounds bilaterally GASTROINTESTINAL: Abdomen soft, non-tender, nondistended. Obese. MUSCULOSKELETAL: Extremities without clubbing, cyanosis, or edema. No joint tenderness, effusion, or edema noted. No calf tenderness. Negative Homans sign bilaterally. NEUROLOGICAL: Awake, restless. MOves all her extremities Psych: restless IV line sites with no e.o infection Assessment & Plan Remarks Severe Sepsis present on admission (leucocytosis, tachycardia, pneumonia) Pneumonia: CAP vs HCAP vs atypical. Patient has been intubated 3 times in past for COPD or drug overdose issues. - C/S pending COPD acute exacerbation. Rule out influenza pneumonia. Rule out Endocarditis. Acute resp failure on vent. Acute renal failure: prerenal, sepsis. Acute metabolic encephalopathy: sepsis, sedation Recs: Continue Zosyn IV Continue Vanco IV(target 15-20: pneumonia and bacteremia cultures pending) Continue Azithro IV Resp panel to check Influenza pcr. Continue Tamiflu Follow cultures Check atypical serologies Monitor progress D/W Brenda Carpio MD Jul 06, 2017 09:39
--- NOTE | 2017-07-06 09:57 | PD.CARD.PN ---
Subjective Subjective Remarks Just extubated. No c/o chest pain Objective Medications Current Medications Medications (Trade) Dose Ordered Sig/Ellen Route Start Time Stop Time Status Last Admin (NS Flush) 2 ml UNSCH PRN IVF 07/05/17 06:00 (NS Flush) 2 ml UNSCH PRN IVF 07/05/17 06:30 Propofol 100 ml @ 0 mls/hr TITRATE PRN IV 07/05/17 06:30 07/05/17 10:27 (Duoneb Neb) 1 ampule Q6HR NEB INH 07/05/17 10:00 07/06/17 07:50 Miscellaneous Information 1 Q361D XX 07/05/17 08:00 (Chlorhexidine 2% Cloth) 3 pack Taper DAILY@04 TOP 07/06/17 04:00 07/02/18 03:59 07/06/17 05:03 (Chlorhexidine 2% Cloth) 3 pack UNSCH PRN TOP 07/05/17 08:00 (Cecily-Colace) 1 tab BID PO 07/05/17 09:00 07/06/17 08:47 (Milk Of Magnesia Liq) 30 ml Q12H PRN PO 07/05/17 08:00 (Senokot) 17.2 mg Q12H PRN PO 07/05/17 08:00 (Dulcolax Supp) 10 mg DAILY PRN RECTAL 07/05/17 08:00 (Lactulose Liq) 30 ml DAILY PRN PO 07/05/17 08:00 (SoluMEDROL INJ) 60 mg Q8HR IV PUSH 07/05/17 14:00 07/06/17 05:03 Piperacillin Sod/ Tazobactam Sod 100 ml @ 200 mls/hr Q6H IV 07/05/17 09:00 07/06/17 08:34 Pharmacy Profile Note 0 ml @ 0 mls/hr UNSCH OTHER 07/05/17 08:00 Azithromycin 500 mg/Sodium Chloride 250 ml @ 250 mls/hr Q24H IV 07/06/17 06:00 07/06/17 05:02 Fentanyl Citrate 250 ml @ 5 mls/hr TITRATE PRN IV 07/05/17 08:00 07/06/17 05:02 (D50w (Vial) Inj) 50 ml UNSCH PRN IV PUSH 07/05/17 08:15 (Glucagon Inj) 1 mg UNSCH PRN OTHER 07/05/17 08:15 (NovoLIN R SUPPLEMENTAL SCALE) 1 Q4H SQ 07/05/17 08:15 07/06/17 05:09 Vancomycin HCl 1250 mg/Sodium Chloride 262.5 ml @ 250 mls/hr Q24H IV 07/06/17 08:00 07/06/17 08:34 Miscellaneous Information SPECIFIC LAB TO BE DRAWN:VANCOMY... ONCE ONCE .XX 07/08/17 07:45 07/08/17 07:46 Midazolam HCl 100 ml @ 2 mls/hr TITRATE PRN IV 07/05/17 10:00 07/06/17 03:16 (Duoneb Neb) 1 ampule Q2HR NEB PRN NEB 07/05/17 15:00 07/05/17 17:32 (Pepcid Inj) 10 mg Q12HR IV PUSH 07/05/17 21:00 07/06/17 08:34 (Heparin Inj) 5,000 units Q8HR SQ 07/06/17 06:00 07/06/17 05:03 (Tamiflu) 75 mg BID PO 07/05/17 21:00 07/06/17 08:34 Dexmedetomidine HCl 200 mcg/ Sodium Chloride 52 ml @ 5.11 mls/hr TITRATE PRN IV 07/06/17 09:00 07/06/17 08:33 Vital Signs / I&O Vital Signs Date Time Temp Pulse Resp B/P (MAP) Pulse Ox O2 Delivery O2 Flow Rate FiO2 07/06/17 07:51 100 50 07/06/17 06:00 99 26 91/62 (72) 100 07/06/17 06:00 99 07/06/17 05:00 114 28 127/67 (87) 99 07/06/17 05:00 114 07/06/17 04:04 100 50 07/06/17 04:00 50 07/06/17 04:00 102 07/06/17 04:00 98.4 102 23 116/65 (82) 100 07/06/17 03:00 123 25 117/73 (88) 100 07/06/17 03:00 123 07/06/17 02:00 104 07/06/17 02:00 104 9 113/72 (86) 100 4/21/18 00:00 107 18 00:00 50 18 00:00 98.1 107 26 100/55 (70) 98 18 23:31 98 50 07/05/17 22:00 121 4/18 22:00 50 4/18 22:00 121 26 116/71 (86) 100 420/18 20:00 40 20/18 20:00 109 07/05/ 20:00 98.8 109 26 92/55 (67) 91 18 19:35 92 45 20/18 18:00 115 420/18 18:00 115 26 93/57 (69) 92 07/05/17 17:00 99.2 114 26 96/54 (68) 91 07/05/17 16:00 118 18 16:00 40 07/05/17 16:00 98.4 118 26 92/56 (68) 92 07/05/17 15:50 92 40 07/05/ 15:00 117 26 90/54 (66) 94 18 14:04 40 07/05/17 14:00 112 26 86/51 (63) 94 18 14:00 112 07/05/17 13:00 109 26 81/50 (60) 93 07/05/17 12:03 96 40 18 12:00 98.0 115 26 74/50 (58) 96 18 12:00 115 18 11:00 40 07/05/17 11:00 119 17 112/58 (76) 95 07/05/17 10:16 95 40 18 10:00 130 20/18 10:00 130 26 113/80 (91) 96 I/O 20/18 4/20/18 4/20/18 4//18 4/18 07/06/18 07:00 15:00 23:00 07:00 15:00 23:00 Intake Total 100 ml 300 ml 389.6 ml 554 ml Output Total 2100 ml 450 ml Balance 100 ml 300 ml -1710.4 ml 104 ml Intake IV Total 100 ml 300 ml 315.6 ml 200 ml Tube Feeding 14 ml 294 ml Tube Irrigant 60 ml Other 60 ml Output Urine Total 2100 ml 450 ml # Bowel Movements 0 0 Physical Exam lethargic Mild tachypnea Chest B/L wheezing CV S1S2 mild tachy, no S3 Abd soft No edeam Laboratory Laboratory Tests Test 07/05/17 10:00 07/05/17 11:30 07/05/17 12:50 07/05/17 13:35 Nasal Screen MRSA (PCR) MRSA NOT DETECTED Blood Gas Puncture Site RT RADIAL Blood Gas Patient Temperature 98.6 Blood Gas HCO3 23 mmol/L Blood Gas Base Excess -4.8 mmol/L Blood Gas Oxygen Saturation 96 % Arterial Blood pH 7.15 Arterial Blood Partial Pressure CO2 68 mmHg Arterial Blood Partial Pressure O2 177 mmHg Arterial Blood Oxygen Content 18.3 Vol % Arterial Blood Carboxyhemoglobin 0.6 % Arterial Blood Methemoglobin 1.5 % Blood Gas Hemoglobin 13.2 G/DL Oxygen Delivery Device VENTILATOR Blood Gas Ventilator Setting PRVC20/550/1.1/+5 Blood Gas Inspired Oxygen 40 % White Blood Count 22.5 TH/MM3 Red Blood Count 4.16 MIL/MM3 Hemoglobin 12.2 GM/DL Hematocrit 38.0 % Mean Corpuscular Volume 91.4 FL Mean Corpuscular Hemoglobin 29.4 PG Mean Corpuscular Hemoglobin Concent 32.2 % Red Cell Distribution Width 14.8 % Platelet Count 193 TH/MM3 Mean Platelet Volume 9.6 FL Neutrophils (%) (Auto) 96.3 % Lymphocytes (%) (Auto) 2.4 % Monocytes (%) (Auto) 1.2 % Eosinophils (%) (Auto) 0.0 % Basophils (%) (Auto) 0.1 % Neutrophils # (Auto) 21.7 TH/MM3 Lymphocytes # (Auto) 0.6 TH/MM3 Monocytes # (Auto) 0.3 TH/MM3 Eosinophils # (Auto) 0.0 TH/MM3 Basophils # (Auto) 0.0 TH/MM3 CBC Comment DIFF FINAL Differential Comment Blood Urea Nitrogen 18 MG/DL Creatinine 1.53 MG/DL Random Glucose 83 MG/DL Total Protein 6.6 GM/DL Albumin 3.2 GM/DL Calcium Level 7.4 MG/DL Alkaline Phosphatase 81 U/L Aspartate Amino Transf (AST/SGOT) 42 U/L Alanine Aminotransferase (ALT/SGPT) 34 U/L Total Bilirubin 0.2 MG/DL Sodium Level 146 MEQ/L Potassium Level 4.8 MEQ/L Chloride Level 118 MEQ/L Carbon Dioxide Level 23.6 MEQ/L Anion Gap 4 MEQ/L Estimat Glomerular Filtration Rate 36 ML/MIN Protein Corrected Calcium 7.7 MG/DL Troponin I 2.91 NG/ML Lactic Acid Level 1.8 mmol/L Test 07/05/17 14:25 07/05/17 18:54 07/05/17 19:02 07/05/17 22:11 Blood Gas Puncture Site RT RADIAL RT RADIAL Blood Gas Patient Temperature 98.6 98.6 Blood Gas HCO3 21 mmol/L 20 mmol/L Blood Gas Base Excess -4.5 mmol/L -6.9 mmol/L Blood Gas Oxygen Saturation 89 % 93 % Arterial Blood pH 7.29 7.22 Arterial Blood Partial Pressure CO2 45 mmHg 49 mmHg Arterial Blood Partial Pressure O2 64 mmHg 87 mmHg Arterial Blood Oxygen Content 15.8 Vol % 16.9 Vol % Arterial Blood Carboxyhemoglobin 1.0 % 0.6 % Arterial Blood Methemoglobin 1.5 % 1.6 % Blood Gas Hemoglobin 12.6 G/DL 12.9 G/DL Oxygen Delivery Device VENTILATOR VENTILATOR Blood Gas Ventilator Setting PCAC26/IP32/IT0.9/+5 PC/AC Blood Gas Inspired Oxygen 40 % 50 % Procalcitonin 6.64 ng/mL Troponin I 2.25 NG/ML Test 07/05/17 23:50 07/06/17 01:45 07/06/17 05:35 White Blood Count 24.7 TH/MM3 Red Blood Count 4.24 MIL/MM3 Hemoglobin 12.6 GM/DL Hematocrit 39.1 % Mean Corpuscular Volume 92.1 FL Mean Corpuscular Hemoglobin 29.8 PG Mean Corpuscular Hemoglobin Concent 32.4 % Red Cell Distribution Width 15.0 % Platelet Count 222 TH/MM3 Mean Platelet Volume 10.0 FL Neutrophils (%) (Auto) 95.8 % Lymphocytes (%) (Auto) 3.0 % Monocytes (%) (Auto) 1.2 % Eosinophils (%) (Auto) 0.0 % Basophils (%) (Auto) 0.0 % Neutrophils # (Auto) 23.6 TH/MM3 Lymphocytes # (Auto) 0.7 TH/MM3 Monocytes # (Auto) 0.3 TH/MM3 Eosinophils # (Auto) 0.0 TH/MM3 Basophils # (Auto) 0.0 TH/MM3 CBC Comment DIFF FINAL Differential Comment Blood Urea Nitrogen 30 MG/DL Creatinine 1.82 MG/DL Random Glucose 130 MG/DL Total Protein 7.3 GM/DL Albumin 3.5 GM/DL Calcium Level 7.7 MG/DL Alkaline Phosphatase 76 U/L Aspartate Amino Transf (AST/SGOT) 47 U/L Alanine Aminotransferase (ALT/SGPT) 35 U/L Total Bilirubin 0.2 MG/DL Sodium Level 145 MEQ/L Potassium Level 5.1 MEQ/L Chloride Level 114 MEQ/L Carbon Dioxide Level 22.5 MEQ/L Anion Gap 9 MEQ/L Estimat Glomerular Filtration Rate 29 ML/MIN Troponin I 3.30 NG/ML Blood Gas Puncture Site RT RADIAL Blood Gas Patient Temperature 98.6 Blood Gas HCO3 20 mmol/L Blood Gas Base Excess -5.5 mmol/L Blood Gas Oxygen Saturation 96 % Arterial Blood pH 7.32 Arterial Blood Partial Pressure CO2 39 mmHg Arterial Blood Partial Pressure O2 127 mmHg Arterial Blood Oxygen Content 16.1 Vol % Arterial Blood Carboxyhemoglobin 0.6 % Arterial Blood Methemoglobin 1.6 % Blood Gas Hemoglobin 11.7 G/DL Oxygen Delivery Device VENTILATOR Blood Gas Ventilator Setting PC /AC Blood Gas Inspired Oxygen 50 % Imaging Last 48 hours Impressions Chest X-Ray 07/05/17 0551 Signed Impressions: Service Date/Time: Wednesday, July 05, 2017 06:43 - CONCLUSION: Diffuse bilateral pulmonary infiltrates. Henrik Valero Jr., MD Chest CT 07/05/17 0000 Signed Impressions: Service Date/Time: Wednesday, July 05, 2017 09:18 - CONCLUSION: Moderate air space disease both lungs worse on the right. Trace fluid on the right Jose Juan Wharton MD FACR Abdomen/Pelvis CT 07/05/17 0000 Signed Impressions: Service Date/Time: Wednesday, July 05, 2017 09:18 - CONCLUSION: Nonspecific findings appeared, most likely source of fever would be in the right lung. No inflammatory changes in the abdomen. I do not see evidence for pyelonephritis although subtle changes could be missed without intravenous contrast. Jose Juan Wharton MD FACR Assessment and Plan Problem List: (1) Elevated troponin ICD Codes: R74.8 - Abnormal levels of other serum enzymes Plan: Possible NSTEMI. More likely not - prob just from pneumonia/ COPD (2) COPD exacerbation ICD Codes: J44.1 - Chronic obstructive pulmonary disease with (acute) exacerbation Status: Acute Plan: Severe (3) Sepsis ICD Codes: A41.9 - Sepsis, unspecified organism Status: Acute (4) Renal insufficiency ICD Codes: N28.9 - Disorder of kidney and ureter, unspecified Status: Acute Assessment and Plan No plans for cardiac cath - medical problems need stabolized. Problem Qualifiers (1) Sepsis: Qualified Codes: A41.9 - Sepsis, unspecified organism Denny Keith MD Jul 06, 2017 09:57
[2017-07-06] MEDS: RESP: ALBUTEROL 2.5 MG/IPRATROPIUM 0.5 MG NEB (PRN) NEB ×2 (10:03→11:29)
[2017-07-06] MEDS ORDERED: RESP: RACEPINEPHRINE 2.25% 0.5 ML NEB ONE (10:10)
--- NOTE | 2017-07-06 11:00 | HHI.CCPN ---
Subjective Remarks/Hospital Course The patient is a 51-year-old female with past medical history of hypertension, COPD, obstructive sleep apnea on CPAP, who presented to [facility] ED via ambulance with tachypnea, tachycardia with heart rate in the 180s. She was initially placed on a CPAP. Her saturation was 94% and was given 6 mg of adenosine for a possible SVT without any changes. Also, she received Solu- Medrol and DuoNeb en route. Due to worsening respiratory status as she was subsequently intubated in the ER with etomidate, succinylcholine, and placed on full mechanical ventilation. Also, she was started on Diprivan infusion for sedation. ABG post-intubation showed acute hypercapnic and hypoxemic respiratory failure with a pH of 7.02, CO2 of 85, PaO2 of 129, bicarbonate 21, sats 95% on pressure control ventilation with 100% FIO2. Her laboratory data significant for leukocytosis with a WBC of 36.7, mild acute kidney injury with creatinine level of 1.37. Also, her lactic acid was measured at 2.3 and BNP of 368. Chest x-ray post-intubation showed diffuse bilateral pulmonary infiltrates. Due to her tachycardia, she was given Cardizem which slowed down her heart rate and appeared to be in sinus tachycardia. In the ER, she also received Rocephin, azithromycin, Ativan and Lasix. Objective Vital Signs Date Time Temp Pulse Resp B/P (MAP) Pulse Ox O2 Delivery O2 Flow Rate FiO2 07/06/17 10:02 96 Nasal Cannula 6.00 07/06/17 07:51 50 07/06/17 06:00 99 26 91/62 (72) 07/06/17 04:00 98.4 Intake and Output 07/06/17 07/06/17 07/07/17 08:00 16:00 00:00 Intake Total 454 ml Output Total 450 ml Balance 4 ml Result Diagram: 07/06/17 0145 07/06/17 0145 Other Results Microbiology Date/Time Source Procedure Growth Status 07/05/17 07:50 Nasal Aspirate Influenza Types A,B Antigen (JAIME) - Final NEGATIVE FOR FLU A AND B ANTIGEN.... Complete 07/05/17 07:00 Urine Catheterized Urine Legionella Antigen - Final PRESUMPTIVE NEGATIVE FOR LEGIONELLA P... Complete 07/05/17 07:00 Urine Catheterized Urine Streptococcus pneumoniae Antigen (M - Final PRESUMPTIVE NEGATIVE FOR STREPTOCOCCU... Complete Laboratory Tests Test 07/05/17 11:30 07/05/17 14:25 07/05/17 22:11 07/06/17 05:35 Blood Gas Puncture Site RT RADIAL RT RADIAL RT RADIAL RT RADIAL Blood Gas Patient Temperature 98.6 98.6 98.6 98.6 Blood Gas HCO3 23 mmol/L (22-26) 21 mmol/L (22-26) 20 mmol/L (22-26) 20 mmol/L (22-26) Blood Gas Base Excess -4.8 mmol/L (-2-2) -4.5 mmol/L (-2-2) -6.9 mmol/L (-2-2) -5.5 mmol/L (-2-2) Blood Gas Oxygen Saturation 96 % (90-100) 89 % (90-100) 93 % (90-100) 96 % ( 90-100) Arterial Blood pH 7.15 (7.380-7.420) 7.29 (7.380-7.420) 7.22 (7.380-7.420) 7.32 (7.380-7.420) Arterial Blood Partial Pressure CO2 68 mmHg (38-42) 45 mmHg (38-42) 49 mmHg (38-42) 39 mmHg (38-42) Arterial Blood Partial Pressure O2 177 mmHg (61-120) 64 mmHg (61-120) 87 mmHg (61-120) 127 mmHg (61-120) Arterial Blood Oxygen Content 18.3 Vol % (12.0-20.0) 15.8 Vol % (12.0-20.0) 16.9 Vol % (12.0-20.0) 16.1 Vol % (12.0-20.0) Arterial Blood Carboxyhemoglobin 0.6 % (0-4) 1.0 % (0-4) 0.6 % (0-4) 0.6 % (0-4) Arterial Blood Methemoglobin 1.5 % (0-2) 1.5 % (0-2) 1.6 % (0-2) 1.6 % (0-2) Blood Gas Hemoglobin 13.2 G/DL (12.0-16.0) 12.6 G/DL (12.0-16.0) 12.9 G/DL (12.0-16.0) 11.7 G/DL (12.0-16.0) Oxygen Delivery Device VENTILATOR VENTILATOR VENTILATOR VENTILATOR Blood Gas Ventilator Setting PRVC20/550/1.1/+5 PCAC26/IP32/IT0.9/+5 PC/AC PC /AC Blood Gas Inspired Oxygen 40 % 40 % 50 % 50 % Theodora Holguin MD Jul 06, 2017 11:00
[2017-07-06 11:57] LABS: CHOLESTEROL/ HDL RATIO 4.51 RATIO; HDL CHOLESTEROL 60.4 MG/DL (40.0-60.0)
[2017-07-06] MEDS ORDERED: DEXMEDETOMIDINE INJ 1,000 MCG in SODIUM CHLOR 0.9% 250 ML INJ 240 ML IV PRN (12:00)
[2017-07-06] MEDS ORDERED: DEXAMETHASONE SOD PHOS 20 MG/5 ML VIAL IM ONE (13:00)
--- NOTE | 2017-07-06 13:28 | PD.AMA ---
Against Medical Advice Note Discharge Disposition: Against Medical Advice Pt Condition on Discharge: Fair AMA Statement Patient Kira Carrasco has decided to leave the hospital against medical advice. This patient has the capacity to refuse care and understands the risks of leaving, including permanent disability and/or , and has had an opportunity to ask questions about her condition. The patient has been informed that she may return for care at any time, and follow up has been arranged/advised. Theodora Holguin MD Jul 06, 2017 13:28
[2017-07-06] MEDS ORDERED: OSEL30 PO (13:42)
[2017-07-06] MEDS ORDERED: LEVA750T9 PO (13:42)
[2017-07-06] MEDS ORDERED: PRED20 PO (13:42)
--- NOTE | 2017-07-06 13:51 | HHI.DS ---
Discharge Summary Admission Date Jul 05, 2017 at 06:57 Discharge Date: Jul 06, 2017 Admitting Diagnosis acute respiratory failure (1) Asthma ICD Code: J45.909 - Unspecified asthma, uncomplicated Status: Acute (2) NSTEMI (non-ST elevated myocardial infarction) ICD Code: I21.4 - Non-ST elevation (NSTEMI) myocardial infarction Status: Acute (3) Acute kidney injury ICD Code: N17.9 - Acute kidney failure, unspecified Diagnosis: Secondary Status: Acute (4) CAP (community acquired pneumonia) ICD Code: J18.9 - Pneumonia, unspecified organism Diagnosis: Secondary Status: Acute (5) Elevated troponin ICD Code: R74.8 - Abnormal levels of other serum enzymes Diagnosis: Secondary (6) Renal insufficiency ICD Code: N28.9 - Disorder of kidney and ureter, unspecified Diagnosis: Secondary Status: Acute (7) Respiratory failure, acute ICD Code: J96.00 - Acute respiratory failure, unspecified whether with hypoxia or hypercapnia Status: Resolved Procedures Intubation 07/05/17 Extubation 07/06/17 Brief History The patient is a 51-year-old female with past medical history of hypertension, COPD, obstructive sleep apnea on CPAP, who presented to [facility] ED via ambulance with tachypnea, tachycardia with heart rate in the 180s. She was initially placed on a CPAP. Her saturation was 94% and was given 6 mg of adenosine for a possible SVT without any changes. Also, she received Solu-Medrol and DuoNeb en route. Due to worsening respiratory status as she was subsequently intubated in the ER with etomidate, succinylcholine, and placed on full mechanical ventilation. Also, she was started on Diprivan infusion for sedation. ABG post-intubation showed acute hypercapnic and hypoxemic respiratory failure with a pH of 7.02, CO2 of 85, PaO2 of 129, bicarbonate 21, sats 95% on pressure control ventilation with 100% FIO2. Her laboratory data significant for leukocytosis with a WBC of 36.7, mild acute kidney injury with creatinine level of 1.37. Also, her lactic acid was measured at 2.3 and BNP of 368. Chest x-ray post-intubation showed diffuse bilateral pulmonary infiltrates. Due to her tachycardia, she was given Cardizem which slowed down her heart rate and appeared to be in sinus tachycardia. In the ER, she also received Rocephin, azithromycin, Ativan and Lasix. CBC/BMP: 07/06/17 0145 07/06/17 0145 Significant Findings Laboratory Tests Test 07/05/17 06:20 07/05/17 06:30 07/05/17 07:00 07/05/17 10:00 White Blood Count 36.7 TH/MM3 (4.0-11.0) Mean Corpuscular Hemoglobin Concent 31.7 % (32.0-36.0) Lymphocytes (%) (Auto) 49.0 % (9.0-44.0) Neutrophils # (Auto) 16.0 TH/MM3 (1.8-7.7) Lymphocytes # (Auto) 18.0 TH/MM3 (1.0-4.8) Monocytes # (Auto) 1.9 TH/MM3 (0-0.9) Eosinophils # (Auto) 0.6 TH/MM3 (0-0.4) Lymphocytes % 52 % (9-44) Neutrophils # (Manual) 15.8 TH/MM3 (1.8-7.7) Prothrombin Time 9.4 SEC (9.8-11.6) Activated Partial Thromboplast Time 22.9 SEC (24.3-30.1) Creatinine 1.37 MG/DL (0.50-1.00) Random Glucose 274 MG/DL (74-106) Calcium Level 8.4 MG/DL (8.5-10.1) Alkaline Phosphatase 121 U/L (45-117) Aspartate Amino Transf (AST/SGOT) 51 U/L (15-37) Chloride Level 115 MEQ/L (98-107) Carbon Dioxide Level 18.3 MEQ/L (21.0-32.0) Estimat Glomerular Filtration Rate 41 ML/MIN (>89) Troponin I 0.09 NG/ML (0.02-0.05) B-Type Natriuretic Peptide 368 PG/ML (0-100) Lactic Acid Level 2.3 mmol/L (0.4-2.0) Urine Mucus FEW /lpf (OCC) Blood Gas HCO3 21 mmol/L (22-26) Blood Gas Base Excess -8.6 mmol/L (-2-2) Arterial Blood pH 7.02 (7.380-7.420) Arterial Blood Partial Pressure CO2 85 mmHg (38-42) Arterial Blood Partial Pressure O2 129 mmHG (61-120) Urine Cannabinoids Screen POS (NEG) Test 07/05/17 11:30 07/05/17 12:50 07/05/17 13:35 07/05/17 14:25 Blood Gas Base Excess -4.8 mmol/L (-2-2) -4.5 mmol/L (-2-2) Arterial Blood pH 7.15 (7.380-7.420) 7.29 (7.380-7.420) Arterial Blood Partial Pressure CO2 68 mmHg (38-42) 45 mmHg (38-42) Arterial Blood Partial Pressure O2 177 mmHg (61-120) White Blood Count 22.5 TH/MM3 (4.0-11.0) Neutrophils (%) (Auto) 96.3 % (16.0-70.0) Lymphocytes (%) (Auto) 2.4 % (9.0-44.0) Neutrophils # (Auto) 21.7 TH/MM3 (1.8-7.7) Lymphocytes # (Auto) 0.6 TH/MM3 (1.0-4.8) Creatinine 1.53 MG/DL (0.50-1.00) Albumin 3.2 GM/DL (3.4-5.0) Calcium Level 7.4 MG/DL (8.5-10.1) Aspartate Amino Transf (AST/SGOT) 42 U/L (15-37) Sodium Level 146 MEQ/L (136-145) Chloride Level 118 MEQ/L (98-107) Anion Gap 4 MEQ/L (5-15) Estimat Glomerular Filtration Rate 36 ML/MIN (>89) Protein Corrected Calcium 7.7 MG/DL (8.5-10.1) Troponin I 2.91 NG/ML (0.02-0.05) Blood Gas HCO3 21 mmol/L (22-26) Blood Gas Oxygen Saturation 89 % (90-100) Test 07/05/17 18:54 07/05/17 19:02 07/05/17 22:11 07/05/17 23:50 Procalcitonin 6.64 ng/mL (0.00-0.08) Troponin I 2.25 NG/ML (0.02-0.05) Blood Gas HCO3 20 mmol/L (22-26) Blood Gas Base Excess -6.9 mmol/L (-2-2) Arterial Blood pH 7.22 (7.380-7.420) Arterial Blood Partial Pressure CO2 49 mmHg (38-42) Test 07/06/17 01:45 07/06/17 05:35 07/06/17 12:00 White Blood Count 24.7 TH/MM3 (4.0-11.0) Neutrophils (%) (Auto) 95.8 % (16.0-70.0) Lymphocytes (%) (Auto) 3.0 % (9.0-44.0) Neutrophils # (Auto) 23.6 TH/MM3 (1.8-7.7) Lymphocytes # (Auto) 0.7 TH/MM3 (1.0-4.8) Blood Urea Nitrogen 30 MG/DL (7-18) Creatinine 1.82 MG/DL (0.50-1.00) Random Glucose 130 MG/DL (74-106) Calcium Level 7.7 MG/DL (8.5-10.1) Aspartate Amino Transf (AST/SGOT) 47 U/L (15-37) Chloride Level 114 MEQ/L (98-107) Estimat Glomerular Filtration Rate 29 ML/MIN (>89) Troponin I 3.30 NG/ML (0.02-0.05) Cholesterol Level 273 MG/DL (120-200) LDL Cholesterol 183 MG/DL (0-99) HDL Cholesterol 60.4 MG/DL (40.0-60.0) Blood Gas HCO3 20 mmol/L (22-26) Blood Gas Base Excess -5.5 mmol/L (-2-2) Arterial Blood pH 7.32 (7.380-7.420) Arterial Blood Partial Pressure O2 127 mmHg (61-120) Blood Gas Hemoglobin 11.7 G/DL (12.0-16.0) Imaging Last 72 hours Impressions Chest X-Ray 07/05/17 0551 Signed Impressions: Service Date/Time: Wednesday, July 05, 2017 06:43 - CONCLUSION: Diffuse bilateral pulmonary infiltrates. Henrik Valero Jr., MD Chest CT 07/05/17 0000 Signed Impressions: Service Date/Time: Wednesday, July 05, 2017 09:18 - CONCLUSION: Moderate air space disease both lungs worse on the right. Trace fluid on the right Jose Juna Wharton MD FACR Abdomen/Pelvis CT 07/05/17 0000 Signed Impressions: Service Date/Time: Wednesday, July 05, 2017 09:18 - CONCLUSION: Nonspecific findings appeared, most likely source of fever would be in the right lung. No inflammatory changes in the abdomen. I do not see evidence for pyelonephritis although subtle changes could be missed without intravenous contrast. Jose Juan Wharton MD FACR PE at Discharge GENERAL: Overweight female who is standing up at the bedside. She is putting on her clothes. SKIN: Warm and dry. HEAD: Atraumatic. Normocephalic. EYES: Pupils equal and round. No scleral icterus. No injection or drainage. ENT: No nasal bleeding or discharge. Mucous membranes pink and moist. NECK: Trachea midline. No JVD. CARDIOVASCULAR: Regular rate and rhythm. No murmurs rubs or gallops. RESPIRATORY: Appears to be breathing reasonably comfortably. There is no accessory muscle use. She has wheeze bilaterally. No rales or rhonchi. Sats are 96% on room air. GASTROINTESTINAL: Abdomen soft, non-tender, nondistended. Bowel sounds present. MUSCULOSKELETAL: Extremities without clubbing, cyanosis, or edema. No obvious deformities. NEUROLOGICAL: Awake and alert. Oriented to self, person, year, president. No obvious cranial nerve deficits. Motor grossly within normal limits. Gait appears normal. Normal speech. Transfer Summary Patient left A Hospital Course The patient is a 51-year-old female with past medical history of hypertension, COPD, obstructive sleep apnea on CPAP, who presented to [facility] ED via ambulance with tachypnea, tachycardia with heart rate in the 180s. She was initially placed on a CPAP. Her saturation was 94% and was given 6 mg of adenosine for a possible SVT without any changes. Also, she received Solu- Medrol and DuoNeb en route. Due to worsening respiratory status as she was subsequently intubated in the ED with etomidate, succinylcholine, and placed on full mechanical ventilation. Also, she was started on Diprivan infusion for sedation. ABG post-intubation showed acute hypercapnic and hypoxemic respiratory failure with a pH of 7.02, CO2 of 85, PaO2 of 129, bicarbonate 21, sats 95% on pressure control ventilation with 100% FIO2. Her laboratory data significant for leukocytosis with a WBC of 36.7, mild acute kidney injury with creatinine level of 1.37. Also, her lactic acid was measured at 2.3 and BNP of 368. Chest x-ray post-intubation showed diffuse bilateral pulmonary infiltrates. Due to her tachycardia, she was given Cardizem which slowed down her heart rate and appeared to be in sinus tachycardia. In the ER, she also received Rocephin, azithromycin, Ativan and Lasix. Subjective: 07/06 Was agitated on CPAP. Started Precedex for CPAP tolerance. Tolerated CPAP and was extubated. She then began requesting to leave AMA. I have urged her to stay for further evaluation. I discussed she has pneumonia, ongoing wheezing, "heart attack", and "kidney failure" and that any of these could become worse and result in or disability. She says she understands that but says "I don 't have any chest pain, I know I am not having a heart attack. I feel fine". Sats are 96% on RA currently. Her boyfriend was at bedside and also helping me and the nursing staff to encourage her to stay in the hospital. She refuses and she is alert, oriented x4. She demonstrates that she understands what we are telling her about her medical condition and that she understands the risks. She is capacitated. She did, at one point, say that she was willing to stay if she could be moved to another room. There were no other rooms in the ICU but she did appear appropriate for transfer to the floor and we were able to get a floor bed for her but then she refused to stay. She also requested a wrist splint which she says she wears chronically but was misplaced. A splint was obtained for her. She was concerned about losing her job; she was provided a work excuse. I discussed with her the importance of taking steroids, abx, tamiflu, albuterol. She was given an albuterol MDI when she left AMA. I told her to stop lisinopril and to not take NSAIDS due to renal failure. Followup with PMD on Saturday 07/08. Also told her she is welcome to return to the ED at any time if she chooses to seek medical attention. Her significant other was present during this discussion, states "she is just hard headed and I don't think you can convince her to stay". Chest x-ray consistent with viral/atypical pneumonia. Influenza nasal swab is negative. PCR is pending. We will continue empiric Tamiflu. Provide a prescription for Levaquin as unable to rule out concomitant bacterial pneumonia. Sputum culture is pending. Prednisone 60 mg p.o. daily for 5 days. She was provided an albuterol MDI when she left AGAINST MEDICAL ADVICE. Pt Condition on Discharge: Fair Discharge Instructions DIET: Follow Instructions for: As Tolerated, No Restrictions New Medications: Levofloxacin (Levaquin) 750 Mg Tablet 750 MG PO EVERY OTHER DAY for Infection for 10 Days, TAB 0 Refills Prednisone (Prednisone) 20 Mg Tab 60 MG PO DAILY for Asthma Management for 7 Days, #21 TAB 0 Refills Oseltamivir (Tamiflu) 30 Mg Cap 30 MG PO BID for influenza for 4 Days, #8 CAP Continued Medications: Albuterol 18 GM Inh (Ventolin Hfa 18 GM Inh) 90 Mcg/Act Aer 2 PUFF INH Q4-6H PRN for SHORTNESS OF BREATH, #1 INHALER 0 Refills Clonidine (Clonidine) 0.1 Mg Tab 0.1 MG PO BID for Blood Pressure Management, #60 TAB 0 Refills Olanzapine (Olanzapine) 10 Mg Tab 10 MG PO DAILY, #30 TAB 0 Refills Sertraline (Sertraline) 100 Mg Tab 100 MG PO DAILY, #30 TAB 0 Refills Trazodone (Trazodone) 100 Mg Tablet 100 MG PO HS for Control Depression, #30 TAB 0 Refills Discontinued Medications: Albuterol 18 GM Inh (Ventolin Hfa 18 GM Inh) 90 Mcg/Act Aer 2 PUFF INH Q6H PRN for SHORTNESS OF BREATH, #1 INHALER 1 Refill Albuterol Neb (Albuterol Neb) 0.63 Mg/3 Ml Neb 0.63 MG NEB QID NEB PRN for SHORTNESS OF BREATH, #125 NEBULE 0 Refills Albuterol Neb (Albuterol Neb) 2.5 Mg/3 Ml Neb 2.5 MG NEB Q4HR NEB PRN for SHORTNESS OF BREATH, #60 NEBULE 0 Refills Lisinopril (Lisinopril) 10 Mg Tab 10 MG PO DAILY, #30 TAB 0 Refills Meloxicam (Meloxicam) 7.5 Mg Tab 7.5 MG PO DAILY for Arthritis Pain, TAB 0 Refills Naproxen (Naproxen) 500 Mg Tab 500 MG PO BID for 7 Days, #14 TAB 0 Refills Prednisone (Prednisone) 20 Mg Tab 40 MG PO DAILY, #10 TAB Take 40 mg (2 tablets) daily for 5 days Additional Information Stop taking NSAIDS (including ibuprofen, aleve, meloxicam etc) because you have ACUTE KIDNEY INJURY. Do not take these medications again unless instructed by your doctor. STOP taking Lisinopril because this can worsen kidney failure. Return to ED for respiratory distress, chest pain, difficulty urinating, worsening condition or other concerns. Take prednisone, tamiflu, albuterol as prescribed. Followup with your doctor on Saturday. Theodora Holguin MD Jul 06, 2017 13:51
--- NOTE | 2017-07-06 14:01 | PD.AMA ---
Against Medical Advice Note Diagnosis: (1) Acute kidney injury (2) Acute respiratory failure (3) Asthma (4) NSTEMI (non-ST elevated myocardial infarction) (5) Influenza (6) CAP (community acquired pneumonia) Discharge Disposition: Against Medical Advice Pt Condition on Discharge: Fair Recommended Treatment Course Patient was admitted with acute respiratory failure, acute asthma exacerbation, what appears to be atypical/viral pneumonia with concomitant R lower lobe infiltrate, acute kidney injury, NSTEMI. She was extubated. I have told her that she has kidney failure and had a heart attack. She is adamant that she is leaving AMA. Sats are 96% on RA. She is capacitated for medical decision- making and indicates that she understands the risk of , disability. I have given her a dose of Decadron 10 mg IM. I have given her an albuterol inhaler to take home. I have instructed given her strict instructions to take prednisone, Tamiflu, Levaquin, albuterol as prescribed. I have told her she is welcome to return to the emergency department any time for respiratory distress or any other concerns. Follow-up with her primary care physician on Saturday. Discussed this with patient and significant other. Refer to discharge summary for further details. Stop taking NSAIDS (including ibuprofen, aleve, meloxicam etc) because you have ACUTE KIDNEY FAILURE. Do not take these medications again unless instructed by your doctor. STOP taking Lisinopril because this can worsen kidney failure. Return to ED for respiratory distress, chest pain, difficulty urinating, worsening condition or other concerns. Take prednisone, tamiflu, levaquin, albuterol as prescribed. Followup with your doctor on Saturday. AMA Statement Patient Kira Carrasco has decided to leave the hospital against medical advice. This patient has the capacity to refuse care and understands the risks of leaving, including permanent disability and/or , and has had an opportunity to ask questions about her condition. The patient has been informed that she may return for care at any time, and follow up has been arranged/advised. Theodora Holguin MD Jul 06, 2017 14:01
[2017-07-06] MEDS ORDERED: ALBUTEROL SULFATE 90 MCG/ACT HFA 8 GM INHALER INH SCH (16:00)
[2017-07-06] MEDS ORDERED: OSELTAMIVIR PHOSPHATE 30 MG CAP PO SCH (21:00)
[2017-07-08] MEDS ORDERED: PHARMACY ORDERED LAB ONE (07:45)
[2017-07-09 13:54] LABS: MYCOPLASMA PNEUMONIAE IGG Positive (Negative); MYCOPLASMA PNEUMONIAE IGM Negative (Negative)
== END 2017-07-06 14:20 | disposition left against medical advice (07) | DRG 871 ==
LOC: NEPE 05:48 → NEDA 06:57 → HIMW 09:35
PROVIDERS: ADMIT Internal Medicine Critical Care Medicine; ATTEND Internal Medicine Critical Care Medicine
PROC: 5A1945Z Respiratory Ventilation, 24-96 Consecutive Hours (ICD-10-PCS; principal; 2017-07-05)
PROC: 0BH17EZ Insertion of Endotracheal Airway into Trachea, Via Natural or Artificial Opening (ICD-10-PCS; 2017-07-05)
PROC: 0D9670Z Drainage of Stomach with Drainage Device, Via Natural or Artificial Opening (ICD-10-PCS; 2017-07-05)
PROC: 0T9B70Z Drainage of Bladder with Drainage Device, Via Natural or Artificial Opening (ICD-10-PCS; 2017-07-05)
DX: A41.9 Sepsis, unspecified organism (principal); I21.4 Non-ST elevation (NSTEMI) myocardial infarction; J96.01 Acute respiratory failure with hypoxia; J96.02 Acute respiratory failure with hypercapnia; J15.9 Unspecified bacterial pneumonia; G93.41 Metabolic encephalopathy; N17.9 Acute kidney failure, unspecified; J44.0 Chronic obstructive pulmonary disease with (acute) lower respiratory infection; E87.2 Acidosis; J44.1 Chronic obstructive pulmonary disease with (acute) exacerbation; J45.901 Unspecified asthma with (acute) exacerbation; R00.0 Tachycardia, unspecified; I10 Essential (primary) hypertension; Z85.3 Personal history of malignant neoplasm of breast; G47.33 Obstructive sleep apnea (adult) (pediatric); Z99.81 Dependence on supplemental oxygen; F17.210 Nicotine dependence, cigarettes, uncomplicated; E66.9 Obesity, unspecified; Z68.36 Body mass index [BMI] 36.0-36.9, adult; R65.20 Severe sepsis without septic shock; Z78.1 Physical restraint status; Z90.11 Acquired absence of right breast and nipple; Z98.51 Tubal ligation status
CPT/HCPCS: 31500; 36600; 43753; 51702; 71045; 71250; 74176; 80053; 80061; 80307; 81001; 82550; 82552; 82805; 83605; 83735; 83880; 84145; 84484; 85007; 85025; 85027; 85610; 85730; 86403; 86631; 86632; 86713; 86738; 87040; 87070; 87077; 87147; 87186; 87205; 87449; 87633; 87641; 87804; 93005; 94002; 94003; 94640; 94664; 96365; 96367; 96368; 96375; J0330; J0456; J0696; J1100; J1644; J1650; J1940; J2060; J2250; J2543; J2930; J3010; J3370; J7050